=== PATIENT | male | born 2005 | race African-American/Black ===

== ENCOUNTER 2025-06-24 10:19 | Emergency (ER) | payer OTHER, SELFPAY ==
[2025-06-24 10:19] VITALS: BP 122/59; PULSE 78; RESP 16; TEMP 36.6; O2SAT 100; BMI 20.9
--- NOTE | 2025-06-24 10:23 | RAD_ITS ---
PROCEDURE: WRIST MIN 3 VIEWS 06/24/2025 REASON FOR EXAM: PAIN TECHNIQUE: Procedure Code: RADWR Modality: DX Procedure: WRIST MIN 3 VIEWS Laterality: Left COMPARISON: None FINDINGS: Bones: No visible fracture. No suspicious bone lesion. Joints: Normal alignment. Soft tissues: Soft tissues are unremarkable. RAD/Wrist min 3 Views IMPRESSION: NO ACUTE FRACTURE OR DISLOCATION. If acute hand or wrist trauma is suspected an d initial radiographs are negative or equivocal repeat radiographs in 10-14 days MRI without IV contrast or CT without IV contr ast is usually appropriate as the next imaging study. (ACR Appropriateness Criteria: Acute Hand and Wrist Trauma 2018) Reading Location: [facility]
--- NOTE | 2025-06-24 10:24 | EDS_ITS ---
HPI History of Present Illness Chief Complaint: Upper Extremity Injury Narrative Narrative: Pt is a 19-year-old male who is presenting to the ER today with chief complaint of left wrist pain. Patient was playing in a flag football game yesterday indoors. Patient lost his balance, falling forward with a FOOSH injury to left hand. Patient [id number]. 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 Patient did not hit his head. He has no headache or neck pain. He has no other injury or acute complaint besides left wrist. No left shoulder or left elbow pain. No pain to the left hand. Patient is at bedside. Patient did not take anything for pain this morning. Patient has no obvious deformity. REVIEW OF SYSTEMS: Unless otherwise stated in this report the patient's positive and negative responses for review of systems for constitutional, eyes, ENT, cardiovascular, respiratory, gastrointestinal, neurological, , musculoskeletal, and integument systems and related systems to the presenting problem are either stated in the history of present illness or were not pertinent or were negative for the symptoms and/or complaints related to the presenting medical problem. Nurse's notes and vital signs reviewed. The patient is not hypoxic. Vital signs reviewed and patient is not hypoxic. General: The patient appears well and in no apparent distress. Patient is resting comfortably on cart. Not toxic, lethargic, or listless. Skin: Warm, dry, no pallor noted. There is no rash noted. Head: Normocephalic, atraumatic Eye: Normal conjunctiva, no drainage, EOMI. PERRL. Ears, Nose, Mouth, and Throat: oral mucosa is moist. Nares patent. Cardiovascular: Regular Rate and Rhythm, no murmurs, gallops, or rubs Respiratory: Patient is in no distress, no accessory muscle use, lungs are clear to auscultation, no wheezing, rales or rhonchi Back: non-tender, GI: Soft, no tenderness Musculoskeletal: The patient has full range of motion of all extremities and joints with no difficulty except to left wrist. Patient has mild tenderness palpation to left anatomical snuffbox, mild tenderness with axial loading. Patient has mild to moderate pain with passive flexion extension abduction adduction of left wrist. Patient has no motor, no sensory deficits. Neurological: A&O x4, normal speech, no focal neurological deficits. Psychiatric: Cooperative [facility] Allergy/AdvReac Type Severity Reaction Status Date / Time No Known Allergies Allergy Verified 06/24/25 10:20 Social History Smoking Status: Never smoker EXAM Physical Exam Const Vital Signs: 06/24/25 10:19 Temperature 97.8 F Temperature Source Oral Pulse Rate 78 Respiratory Rate 16 Blood Pressure 122/59 H Blood Pressure Mean 80 Pulse Ox 100 Oxygen Delivery Method Room Air MDM MDM MDM Narrative Medical decision making narrative: Patient x-ray shows no acute fracture, dislocation, or acute abnormality. Patient has ice applied, patient was given Motrin. Patient was educated on using wrist splint for the next 2 to 5 days along with ice, exercises. Patient was given a copy of his wrist x-ray. Patient is off work until after the New Year's. Patient was educated on strict regimen of ice, anti-inflammatories. Patient was told to wear a brace at all times for the next 3 to 4 days, taking it off or ice and shower. Instructions were given at bedside. No question of discharge. Patient had a Velcro wrist splint placed to the left wrist. splint was assisted with Dr. Katz. The patient was neurovascular intact before and after the splint was placed. The affected bones/injured area had proper alignment in a splint. Education on splint care at home was given at bedside. Patient and family had no questions at disposition. Discharge Plan Triage Chief Complaint: Upper Extremity Injury ED Provider: Chetan Katz Dx/Rx/DC Orders Clinical Impression: Pain in left wrist, Left wrist sprain Instructions: ED Wrist Splint, ED Wrist Sprain, ED RICE Primary Care Provider: Anjum Yu Referrals: NOT,DEFINED [Non-Staff, None] Activity Restrictions/Additional Instructions: Use ice 20 minutes on, 20 minutes off for the next 5 to 7 days; do not use heat. You may alternate Tylenol and either Motrin, Advil, ibuprofen every 4 hours as needed for pain/fever. Take anti-inflammatories with food or drink to help buffer the medication. MAX dose of Tylenol is 3000 mg a day. MAX dose of Motrin, Advil, ibuprofen is 2400 mg a day. Print Language: Mexican Disposition Disposition: Home, Self Care Discharge Date/Time: 06/24/25 11:28
[2025-06-24 11:14] VITALS: BP 122/59; PULSE 78; RESP 16; TEMP 36.6; O2SAT 100
--- OUTSIDE RECORDS SUMMARY | 2025-06-24 11:24 | XMS RPT_ITS | CCD ---
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 [facility] Work Phone: Mean corpuscular hemoglobin (MCH) determinationon 01-10-2025 MCH (RBC) [Entitic mass] 31.8 pg 25.9-34.0 [facility] Work Phone: Mean corpuscular hemoglobin concentration (MCHC) determinationon 01-10-2025 MCHC (RBC) [Mass/Vol] 34.5 g/dL 29.9-35.2 [facility] Work Phone: Monocytes Auto (Bld) [#/Vol] on 01-10-2025 Monocytes (Bld) [#/Vol] 0.5 10*3/uL 0.3-0.8 [facility] Work Phone: Monocytes/100 WBC Auto (Bld) on 01-10-2025 Monocytes/100 WBC (Bld) 11.8 % 1.7-12.0 [facility] Work Phone: Mpvon 01-10-2025 Platelet mean volume (Bld) [Entitic vol] 8.8 fL 9.5-13.5 [facility] Work Phone: Neutrophils/100 WBC Auto (Bl d)on 01-10-2025 Neutrophils/100 WBC (Bld) 40.3 % 43.0-75.0 [facility] Work Phone: No Panel Informationon 01-10 Free Triiodothyronine 3.54 pg/mL 2.18-3.98 [facility] Work Phone: Platelets [#/volume] in Bloo don 01-10-2025 Platelets (Bld) [#/Vol] 240 10*3/uL 150-450 [facility] Work Phone: Potassium [Moles/volume] in Serum, Plasma or Bloodon 01-10-2025 Potassium (S/P/Bld) [Moles/Vol] 3.6 mmol/L 3.5-5.1 [facility] Work Phone: RBC counton 01-10-2025 RBC (Bld) [#/Vol] 4.93 10*6/uL 4.70-6.10 [facility] Work Phone: RDWon 01-10-2025 Erythrocyte distribution width (RBC) [Ratio] 11.6 % 11.0-15.0 [facility] Work Phone: Serum globulin measurementon 01-10-2025 Globulin (S) [Mass/Vol] 3.3 g/dL [facility] Work Phone: Serum or plasma creatinine m easurement (moles/volume)on 01-10-2025 Creatinine [Moles/Vol] 1.03 mg/dL 0.70-1.30 [facility] Work Phone: Sodium (Bld) [Moles/Vol]on 0 01-10-2025 Sodium [Moles/Vol] 143 mmol/L 136-145 [facility] Work Phone: T4 Thyroxineon 01-10-2025 T4 [Mass/Vol] 6.70 ug/dL Normal 4.50-12.10 [facility] [place] Comment on above: Performed By: #### C MP, FT3, T4, TSH #### [facility] , Thyroid Stimulating Hormoneo n 01-10-2025 Thyroid Stimulating Hormone 3.008 uIU/mL Normal 0.358-3.740 [facility] [place] Comment on above: Performed By: #### C MP, FT3, T4, TSH #### [facility] , Thyroid stimulating hormone (TSH) levelon 01-10-2025 Thyroid stimulating hormone (TSH) level 3.008 uIU/mL 0.358-3.740 [facility] Work Phone: Thyroxine (T4) measurementon 01-10-2025 T4 [Mass/Vol] 6.70 ug/dL 4.50-12.10 [facility] Work Phone: Total bilirubin measuremento n 01-10-2025 Bilirubin [Mass/Vol] 0.8 mg/dL 0.2-1.0 [facility] Work Phone: Total proteinon 01-10-2025 Protein [Mass/Vol] 8.2 g/dL 6.4-8.2 [facility] Work Phone: CBC W Auto Differential pane l (Bld)on 01-03-2025 Basophils (Bld) [#/Vol] 0.06 10*3/uL [facility] Basophils/100 WBC (Bld) 1.4 % 0.0 - 2.0 % [facility] Eosinophils (Bld) [#/Vol] 0.08 10*3/uL [facility] Eosinophils/100 WBC (Bld) 1.8 % 0.0 - 6.0 % [facility] Erythrocyte distribution width (RBC) [Ratio] 11.8 % 11.5 - 14.5 % [facility] Hematocrit (Bld) [Volume fraction] 43.2 % 41.0 - 52.0 % [facility] Hemoglobin (Bld) [Mass/Vol] 14.7 g/dL 13.5 - 17.5 g/dL [facility] Immature granulocytes (Bld) [#/Vol] 0.01 10*3/uL [facility] Immature granulocytes/100 WBC (Bld) 0.2 % 0.0 - 0.9 % [facility] Comment on above: Immature Granulocyte Count (IG) includes promyelocytes, myelocytes and metamyelocytes but does not include bands. Percent differential counts (%) should be interpreted in the context of the absolute cell counts (cells/UL). Lymphocytes (Bld) [#/Vol] 1.85 10*3/uL [facility] Lymphocytes/100 WBC (Bld) 42.4 % 13.0 - 44.0 % [facility] MCH (RBC) [Entitic mass] 31.1 pg 26.0 - 34.0 pg [facility] MCHC (RBC) [Mass/Vol] 34 g/dL 32.0 - 36.0 g/dL [facility] MCV (RBC) [Entitic vol] 91 fL 80 - 100 fL [facility] Monocytes (Bld) [#/Vol] 0.37 10*3/uL [facility] Monocytes/100 WBC (Bld) 8.5 % 2.0 - 10.0 % [facility] Neutrophils (Bld) [#/Vol] 1.99 10*3/uL [facility] Comment on above: Percent differential counts (%) should be interpreted in the context of the absolute cell counts (cells/uL). Neutrophils/100 WBC (Bld) 45.7 % 40.0 - 80.0 % [facility] Nucleated RBC/100 WBC (Bld) [Ratio] 0 % [facility] Platelets (Bld) [#/Vol] 228 10*3/uL [facility] RBC (Bld) [#/Vol] 4.73 10*6/uL [facility] WBC (Bld) [#/Vol] 4.4 10*3/uL [facility] Basophils (Bld) [#/Vol] 0.06 x10*3/uL Normal 0.00-0.10 [facility] Comment on above: Performed By: #### 5 7021-8 #### JIMI DORADO ([id number]) [facility] ([facility]) [address] [place] [address] 54003 Basophils/100 WBC (Bld) 1.4 % Normal 0.0-2.0 [facility] Comment on above: Performed By: #### 5 7021-8 #### JIMI DORADO ([id number]) [facility] ([facility]) [address] [place] [address] 55755 Eosinophils (Bld) [#/Vol] 0.08 x10*3/uL Normal 0.00-0.70 [facility] Comment on above: Performed By: #### 5 7021-8 #### JIMI DORADO ([id number]) [facility] ([facility]) [address] [place] [address] 17461 Eosinophils/100 WBC (Bld) 1.8 % Normal 0.0-6.0 [facility] Comment on above: Performed By: #### 5 7021-8 #### JIMI DORADO ([id number]) [facility] ([facility]) [address] [place] [address] 97872 Erythrocyte distribution width (RBC) [Ratio] 11.8 % Normal 11.5-14.5 [facility] Comment on above: Performed By: #### 5 7021-8 #### JIMI DORADO ([id number]) [facility] ([facility]) [address] [place] [address] 16604 Hematocrit (Bld) [Volume fraction] 43.2 % Normal 41.0-52.0 [facility] Comment on above: Performed By: #### 5 7021-8 #### JIMI DORADO ([id number]) [facility] ([facility]) [address] [place] [address] 86868 Hemoglobin (Bld) [Mass/Vol] 14.7 g/dL Normal 13.5-17.5 [facility] Comment on above: Performed By: #### 5 7021-8 #### JIMI DORADO ([id number]) [facility] ([facility]) [address] [place] [address] 10925 Immature granulocytes (Bld) [#/Vol] 0.01 x10*3/uL Normal 0.00-0.70 [facility] Comment on above: Performed By: #### 5 7021-8 #### JIMI DORADO ([id number]) [facility] ([facility]) [address] [place] [address] 75628 Immature granulocytes/100 WBC (Bld) 0.2 % Normal 0.0-0.9 [facility] Comment on above: Result Comment: Mechelle ture Granulocyte Count (IG) includes promyelocytes, myelocytes and metamyelocytes but does not include bands. Percent differential counts (%) should be interpreted in the context of the absolute cell counts (cells/UL). Performed By: #### 5 7021-8 #### JIMI DORADO ([id number]) [facility] ([facility]) [address] [place] [address] 29104 Lymphocytes (Bld) [#/Vol] 1.85 x10*3/uL Normal 1.20-4.80 [facility] Comment on above: Performed By: #### 5 7021-8 #### JIMI DORADO ([id number]) [facility] ([facility]) [address] [place] [address] 38790 Lymphocytes/100 WBC (Bld) 42.4 % Normal 13.0-44.0 [facility] Comment on above: Performed By: #### 5 7021-8 #### JIMI DORADO ([id number]) [facility] ([facility]) [address] [place] [address] 93793 MCH (RBC) [Entitic mass] 31.1 pg Normal 26.0-34.0 [facility] Comment on above: Performed By: #### 5 7021-8 #### JIMI DORADO ([id number]) [facility] ([facility]) [address] [place] [address] 43101 MCHC (RBC) [Mass/Vol] 34.0 g/dL Normal 32.0-36.0 [facility] Comment on above: Performed By: #### 5 7021-8 #### JIMI DORADO ([id number]) [facility] ([facility]) [address] [place] [address] 71457 MCV (RBC) [Entitic vol] 91 fL Normal 80-100 [facility] Comment on above: Performed By: #### 5 7021-8 #### JIMI DORADO ([id number]) [facility] ([facility]) [address] [place] [address] 53062 Monocytes (Bld) [#/Vol] 0.37 x10*3/uL Normal 0.10-1.00 [facility] Comment on above: Performed By: #### 5 7021-8 #### JIMI DORADO ([id number]) [facility] ([facility]) [address] [place] [address] 94432 Monocytes/100 WBC (Bld) 8.5 % Normal 2.0-10.0 [facility] Comment on above: Performed By: #### 5 7021-8 #### JIMI DORADO ([id number]) [facility] ([facility]) [address] [place] [address] 60039 Neutrophils (Bld) [#/Vol] 1.99 x10*3/uL Normal 1.20-7.70 [facility] Comment on above: Result Comment: Perc ent differential counts (%) should be interpreted in the context of the absolute cell counts (cells/uL). Performed By: #### 5 7021-8 #### JIMI DORADO ([id number]) [facility] ([facility]) [address] [place] [address] 76720 Neutrophils/100 WBC (Bld) 45.7 % Normal 40.0-80.0 [facility] Comment on above: Performed By: #### 5 7021-8 #### JIMI DORADO ([id number]) [facility] ([facility]) [address] [place] [address] 31636 Nucleated RBC/100 WBC (Bld) [Ratio] 0.0 /100 WBCs Normal 0.0-0.0 [facility] Comment on above: Performed By: #### 5 7021-8 #### JIMI DORADO ([id number]) [facility] ([facility]) [address] [place] [address] 56018 Platelets (Bld) [#/Vol] 228 x10*3/uL Normal 150-450 [facility] Comment on above: Performed By: #### 5 7021-8 #### JIMI DORADO ([id number]) [facility] ([facility]) [address] [place] [address] 42251 RBC (Bld) [#/Vol] 4.73 x10*6/uL Normal 4.50-5.90 [facility] Comment on above: Performed By: #### 5 7021-8 #### JIMI DORADO ([id number]) [facility] ([facility]) [address] [place] [address] WBC (Bld) [#/Vol] 4.4 x10*3/uL Normal 4.4-11.3 [facility] Comment on above: Performed By: #### 5 7021-8 #### KRAUSE DAVIDSUSAN ([id number]) [facility] ([facility]) [address] [place] [address] CT CERVICAL SPINE WO IV CONT RASTon 01-03-2025 CT CERVICAL SPINE WO IV CONTRAST Interpreted By: Kyrie Marinelli, STUDY: CT CERVICAL SPINE WO IV CONTRAST; 01/03/2025 8:05 am INDICATION: Signs/Symptoms:neck trauma. COMPARISON: None. ACCESSION NUMBER(S): [id number] ORDERING CLINICIAN: STACY BILLINGSLEY TECHNIQUE: Unenhanced axial images were obtained through the cervical spine. The axial data was utilized to reconstruct images in sagittal and coronal planes. FINDINGS: No acute fracture is identified. No subluxation is seen. Facet joints demonstrate a normal alignment. Prevertebral soft tissues are within normal limits. No lytic or blastic lesion is noted. IMPRESSION: No evidence of an acute fracture or subluxation. MACRO: None. Signed by: Kyrie Marinelli 01/03/2025 8:22 AM Dictation workstation: [id number] [facility] CT Cervical spine WO contras ton 01-03-2025 No evidence of an acute fracture or subluxation. MACRO: None. Signed by: Kyrie Marinelli 01/03/2025 8:22 AM Dictation workstation: [id number] [facility]ODAL Interpreted By: Kyrie Marinelli, STUDY: CT CERVICAL SPINE WO IV CONTRAST; 01/03/2025 8:05 am INDICATION: Signs/Symptoms:neck trauma. COMPARISON: None. ACCESSION NUMBER(S): [id number] ORDERING CLINICIAN: STACY BILLINGSLEY TECHNIQUE: Unenhanced axial images were obtained through the cervical spine. The axial data was utilized to reconstruct images in sagittal and coronal planes. FINDINGS: No acute fracture is identified. No subluxation is seen. Facet joints demonstrate a normal alignment. Prevertebral soft tissues are within normal limits. No lytic or blastic lesion is noted. [facility] Kyrie Marinelli MD - 01/03/2025 Interpreted By: Kyrie Marinelli, STUDY: CT CERVICAL SPINE WO IV CONTRAST; 01/03/2025 8:05 am INDICATION: Signs/Symptoms:neck trauma. COMPARISON: None. ACCESSION NUMBER(S): [id number] ORDERING CLINICIAN: STACY BILLINGSLEY TECHNIQUE: Unenhanced axial images were obtained through the cervical spine. The axial data was utilized to reconstruct images in sagittal and coronal planes. FINDINGS: No acute fracture is identified. No subluxation is seen. Facet joints demonstrate a normal alignment. Prevertebral soft tissues are within normal limits. No lytic or blastic lesion is noted. IMPRESSION: No evidence of an acute fracture or subluxation. MACRO: None. Signed by: Kyrie Marinelli 01/03/2025 8:22 AM Dictation workstation: [id number] [facility] Work Phone: [facility] Work Phone: CT HEAD WO IV CONTRASTon CT HEAD WO IV CONTRAST Interpreted By: Kyrie Marinelli, STUDY: CT HEAD WO IV CONTRAST; 01/03/2025 8:05 am INDICATION: Signs/Symptoms:head trauma. COMPARISON: None. ACCESSION NUMBER(S): [id number] ORDERING CLINICIAN: STACY BILLINGSLEY TECHNIQUE: Unenhanced images were obtained through the brain. FINDINGS: The ventricles appear normal in size and position. There is no mass effect or midline shift. No acute intracranial hemorrhage is identified. No extra-axial fluid collections are seen. No intraparenchymal mass lesions are identified. Bone windows demonstrate no evidence of an acute calvarial fracture. IMPRESSION: No evidence of an acute intracranial process. MACRO: None. Signed by: Kyrie Marinelli 01/03/2025 8:21 AM Dictation workstation: [id number] [facility] CT Head WO contraston 2024 No evidence of an acute intracranial process. MACRO: None. Signed by: Kyrie Marinelli 01/03/2025 8:21 AM Dictation workstation: [id number] MMODAL Interpreted By: Kyrie Marinelli, STUDY: CT HEAD WO IV CONTRAST; 01/03/2025 8:05 am INDICATION: Signs/Symptoms:head trauma. COMPARISON: None. ACCESSION NUMBER(S): [id number] ORDERING CLINICIAN: STACY BILLINGSLEY TECHNIQUE: Unenhanced images were obtained through the brain. FINDINGS: The ventricles appear normal in size and position. There is no mass effect or midline shift. No acute intracranial hemorrhage is identified. No extra-axial fluid collections are seen. No intraparenchymal mass lesions are identified. Bone windows demonstrate no evidence of an acute calvarial fracture. [facility] - 01/03/2025 Interpreted By: Kyrie Marinelli, STUDY: CT HEAD WO IV CONTRAST; 01/03/2025 8:05 am INDICATION: Signs/Symptoms:head trauma. COMPARISON: None. ACCESSION NUMBER(S): [id number] ORDERING CLINICIAN: STACY BILLINGSLEY TECHNIQUE: Unenhanced images were obtained through the brain. FINDINGS: The ventricles appear normal in size and position. There is no mass effect or midline shift. No acute intracranial hemorrhage is identified. No extra-axial fluid collections are seen. No intraparenchymal mass lesions are identified. Bone windows demonstrate no evidence of an acute calvarial fracture. IMPRESSION: No evidence of an acute intracranial process. MACRO: None. Signed by: Kyrie Marinelli 01/03/2025 8:21 AM Dictation workstation: [id number] [facility] Work Phone: [facility] Work Phone: Comprehensive metabolic 2000 panelon 01-03-2025 Albumin BCP dye [Mass/Vol] 4.7 g/dL 3.4 - 5.0 g/dL [facility] ALP [Catalytic activity/Vol] 55 U/L 33 - 120 U/L [facility] ALT With P-5'-P [Catalytic activity/Vol] 10 U/L 10 - 52 U/L [facility] Comment on above: Patients treated wit h Sulfasalazine may generate falsely decreased results for ALT. Anion gap [Moles/Vol] 9 mmol/L Low 10 - 20 mmol/L [facility] AST With P-5'-P [Catalytic activity/Vol] 13 U/L 9 - 39 U/L [facility] Bilirubin [Mass/Vol] 0.5 mg/dL 0.0 - 1 .2 mg/dL [facility] Calcium [Mass/Vol] 9.2 mg/dL 8.6 - 10. 3 mg/dL [facility] Chloride [Moles/Vol] 105 mmol/L 98 - 10 7 mmol/L [facility] CO2 [Moles/Vol] 28 mmol/L 21 - 32 mmol/L [facility] Creatinine [Mass/Vol] 1.04 mg/dL 0.50 - 1.30 mg/dL [facility] eGFR - PINF [facility] Comment on above: Calculations of hoda mated GFR are performed using the 2020 CKD-EPI Study Refit equation without the race variable for the IDMS-Traceable creatinine methods. https://jasn.asnjournals.org/content/early/ASN.9059420 988 Glucose [Mass/Vol] 94 mg/dL 74 - 99 mg/dL [facility] Interpretation and review of laboratory results Abnormal [facility] Potassium [Moles/Vol] 4 mmol/L 3.5 - 5.3 mmol/L [facility] Protein [Mass/Vol] 6.9 g/dL 6.4 - 8.2 g/dL [facility] Sodium [Moles/Vol] 138 mmol/L 136 - 145 mmol/L [facility] Urea nitrogen [Mass/Vol] 11 mg/dL 6 - 23 mg/dL [facility] Albumin BCP dye [Mass/Vol] 4.7 g/dL Normal 3.4-5.0 [facility] Comment on above: Performed By: #### 2 4323-8 #### JIMI DORADO ([id number]) [facility] ([facility]) [address] [place] [address] 08679 ALP [Catalytic activity/Vol] 55 U/L Normal 33-120 [facility] Comment on above: Performed By: #### 2 4323-8 #### JIMI DORADO ([id number]) [facility] ([facility]) [address] [place] [address] 83149 ALT With P-5'-P [Catalytic activity/Vol] 10 U/L Normal 10-52 [facility] Comment on above: Result Comment: Isabella ents treated with Sulfasalazine may generate falsely decreased results for ALT. Performed By: #### 2 4323-8 #### JIMI DORADO ([id number]) [facility] ([facility]) [address] [place] [address] Anion gap [Moles/Vol] 9 mmol/L Low 10-20 [facility] Comment on above: Performed By: #### 2 432-8 #### JIMI DORADO ([id number]) [facility] ([facility]) [address] [place] [address] 67074 AST With P-5'-P [Catalytic activity/Vol] 13 U/L Normal 9-39 [facility] Comment on above: Performed By: #### 2 432-8 #### JIMI DORADO ([id number]) [facility] ([facility]) [address] [place] [address] Bilirubin [Mass/Vol] 0.5 mg/dL Normal 0.0-1.2 [facility] Comment on above: Performed By: #### 2 432-8 #### JIMI DORADO ([id number]) [facility] ([facility]) [address] [place] [address] Calcium [Mass/Vol] 9.2 mg/dL Normal 8.6-10.3 [facility] Comment on above: Performed By: #### 2 4323-8 #### JIMI DORADO ([id number]) [facility] ([facility]) [address] [place] [address] Chloride [Moles/Vol] 105 mmol/L Normal 98-107 [facility] Comment on above: Performed By: #### 2 4323-8 #### JIMI DORADO ([id number]) [facility] ([facility]) [address] [place] [address] CO2 [Moles/Vol] 28 mmol/L Normal 21-32 [facility] Comment on above: Performed By: #### 2 4323-8 #### JIMI DORADO ([id number]) [facility] ([facility]) [address] [place] [address] 76458 Creatinine [Mass/Vol] 1.04 mg/dL Normal 0.50-1.30 [facility] Comment on above: Performed By: #### 2 4323-8 #### JIMI DORADO ([id number]) [facility] ([facility]) [address] [place] [address] 73765 GFR/1.73 sq M.predicted MDRD (S/P/Bld) [Vol rate/Area] mL/min/{1.73_m2} Normal >60 [facility] Comment on above: Result Comment: Calc ulations of estimated GFR are performed using the 2020 CKD-EPI Study Refit equation without the race variable for the IDMS-Traceable creatinine methods. https://jasn.asnjournals.org/content/early//ASN.3538864 988 Performed By: #### 2 4323-8 #### JIMI DORADO ([id number]) [facility] ([facility]) [address] [place] [address] 57767 Glucose [Mass/Vol] 94 mg/dL Normal 74-99 [facility] Comment on above: Performed By: #### 2 4323-8 #### JIMI DORADO ([id number]) [facility] ([facility]) [address] [place] [address] 18970 Potassium [Moles/Vol] 4.0 mmol/L Normal 3.5-5.3 [facility] Comment on above: Performed By: #### 2 4323-8 #### JIMI DORADO ([id number]) [facility] ([facility]) [address] [place] [address] 71731 Protein [Mass/Vol] 6.9 g/dL Normal 6.4-8.2 [facility] Comment on above: Performed By: #### 2 4323-8 #### JIMI DORADO ([id number]) [facility] ([facility]) [address] [place] [address] Sodium [Moles/Vol] 138 mmol/L Normal 136-145 [facility] Comment on above: Performed By: #### 2 4323-8 #### JIMI DORADO ([id number]) [facility] ([facility]) [facility] [place] [address] Urea nitrogen [Mass/Vol] 11 mg/dL Normal 6-23 [facility] Comment on above: Performed By: #### 2 4323-8 #### JIMI DORADO ([id number]) [facility] ([facility]) [address] [place] [address] ECG 12-LEADon 01-03-2025 ECG 12-LEAD Ventricular Rate 69 Atrial Rate 69 P-R Interval 140 QRS Duration 92 Q-T Interval 364 QTC Calculation(Bazett) 390 P Duffield 38 R Duffield 76 T Duffield 50 QRS Count 11 Q Onset 220 P Onset 150 P Offset 190 T Offset 402 QTC Fredericia 381 Diagnosis Normal sinus rhythm Normal ECG No previous ECGs available See ED provider note for full interpretation and clinical correlation Confirmed by Katheryn Tesfaye ([id number]) on 01/07/2025 11:43:37 AM Normal [facility] (formerly [facility]) Magnesiumon 01-03-2025 Magnesium [Mass/Vol] 1.98 mg/dL 1.60 - 2.40 mg/dL [facility] Magnesium [Mass/Vol] 1.98 mg/dL Normal 1.60-2.40 [facility] Comment on above: Performed By: #### 1 [id number] #### JIMI DORADO ([id number]) [facility] ([facility]) [address] [place], [place] [id number] Magnesium [Mass/Vol]on 01-03 Interpretation and review of laboratory results Normal [facility] No Panel Informationon 01-03 [facility] Radiology Study observation (narrative) [facility] Work Phone: Tropinin I.cardiac panel Hig h sensitivity methodon 01-03-2025 Interpretation and review of laboratory results Normal [facility] Less than 99th percentile of normal range cutoff- Female and children under 18 years old <14 ng/L; Male <21 ng/L: Negative Repeat testing should be performed if clinically indicated. Female and children under 18 years old 14-50 ng/L; Male 21-50 ng/L: Consistent with possible cardiac damage and possible increased clinical risk. Serial measurements may help to assess extent of myocardial damage. >50 ng/L: Consistent with cardiac damage, increased clinical risk and myocardial infarction. Serial measurements may help assess extent of myocardial damage. NOTE: Children less than 1 year old may have higher baseline troponin levels and results should be interpreted in conjunction with the overall clinical context. NOTE: Troponin I testing is performed using a different testing methodology at [facility] than at other [facility]. Direct result comparisons should only be made within the same method. [facility] Interpretation and review of laboratory results Normal [facility] Less than 99th percentile of normal range cutoff- Female and children under 18 years old <14 ng/L; Male <21 ng/L: Negative Repeat testing should be performed if clinically indicated. Female and children under 18 years old 14-50 ng/L; Male 21-50 ng/L: Consistent with possible cardiac damage and possible increased clinical risk. Serial measurements may help to assess extent of myocardial damage. >50 ng/L: Consistent with cardiac damage, increased clinical risk and myocardial infarction. Serial measurements may help assess extent of myocardial damage. NOTE: Children less than 1 year old may have higher baseline troponin levels and results should be interpreted in conjunction with the overall clinical context. NOTE: Troponin I testing is performed using a different testing methodology at [facility] than at other [facility]. Direct result comparisons should only be made within the same method. [facility] Troponin I, High Sensitivity , Initialon 01-03-2025 Tropinin I.cardiac panel High sensitivity method 3 ng/L 0 - 20 ng/L [facility] Troponin I.cardiac panelon 0 01-03-2025 Tropinin I.cardiac panel High sensitivity method 3 ng/L Normal 0-20 [facility] Comment on above: Order Comment: Less than 99th percentile of normal range cutoff- Female and children under 18 years old <14 ng/L; Male <21 ng/L: Negative Repeat testing should be performed if clinically indicated. Female and children under 18 years old 14-50 ng/L; Male 21-50 ng/L: Consistent with possible cardiac damage and possible increased clinical risk. Serial measurements may help to assess extent of myocardial damage. >50 ng/L: Consistent with cardiac damage, increased clinical risk and myocardial infarction. Serial measurements may help assess extent of myocardial damage. NOTE: Children less than 1 year old may have higher baseline troponin levels and results should be interpreted in conjunction with the overall clinical context. NOTE: Troponin I testing is performed using a different testing methodology at [facility] than at other [facility]. Direct result comparisons should only be made within the same method. Performed By: #### [id number] #### [address] ([id number]) [facility] ([facility]) [address] [place], [place] [phone] Tropinin I.cardiac panel High sensitivity method 3 ng/L Normal 0-20 [facility] Comment on above: Order Comment: Less than 99th percentile of normal range cutoff- Female and children under 18 years old <14 ng/L; Male <21 ng/L: Negative Repeat testing should be performed if clinically indicated. Female and children under 18 years old 14-50 ng/L; Male 21-50 ng/L: Consistent with possible cardiac damage and possible increased clinical risk. Serial measurements may help to assess extent of myocardial damage. >50 ng/L: Consistent with cardiac damage, increased clinical risk and myocardial infarction. Serial measurements may help assess extent of myocardial damage. NOTE: Children less than 1 year old may have higher baseline troponin levels and results should be interpreted in conjunction with the overall clinical context. NOTE: Troponin I testing is performed using a different testing methodology at [facility] than at other [facility]. Direct result comparisons should only be made within the same method. Performed By: #### [id number] #### [address] ([id number]) [facility] ([facility]) [address] [place] [id number] Troponin, High Sensitivity, 1 Houron 01-03-2025 Tropinin I.cardiac panel High sensitivity method 3 ng/L 0 - 20 ng/L [facility] XR CHEST 1 VIEWon 01-03-2025 XR CHEST 1 VIEW Interpreted By: Kyrie Marinelli, STUDY: XR CHEST 1 VIEW; 01/03/2025 7:39 am INDICATION: Signs/Symptoms:Chest Pain. COMPARISON: None. ACCESSION NUMBER(S): [id number] ORDERING CLINICIAN: STACY BILLINGSLEY FINDINGS: CHEST/LUNGS: The cardiac and mediastinal silhouettes are within normal limits for the technique. No focal areas of consolidation are noted. No effusion or pneumothorax is seen. UPPER ABDOMEN: No remarkable upper abdominal findings. OSSEOUS STRUCTURES: No acute changes. IMPRESSION: No radiographic evidence of an acute cardiopulmonary process. MACRO: None. Signed by: Kyrie Marinelli 01/03/2025 8:19 AM Dictation workstation: [id number] [facility] XR Chest Single viewon 01-03 No radiographic evidence of an acute cardiopulmonary process. MACRO: None. Signed by: Kyrie Marinelli 01/03/2025 8:19 AM Dictation workstation: [id number] [facility] Interpreted By: Kyrie Marinelli, STUDY: XR CHEST 1 VIEW; 01/03/2025 7:39 am INDICATION: Signs/Symptoms:Chest Pain. COMPARISON: None. ACCESSION NUMBER(S): [id number] ORDERING CLINICIAN: STACY BILLINGSLEY FINDINGS: CHEST/LUNGS: The cardiac and mediastinal silhouettes are within normal limits for the technique. No focal areas of consolidation are noted. No effusion or pneumothorax is seen. UPPER ABDOMEN: No remarkable upper abdominal findings. OSSEOUS STRUCTURES: No acute changes. MMODAL Kyrie Marinelli MD - 01/03/2025 Interpreted By: Kyrie Marinelli, STUDY: XR CHEST 1 VIEW; 01/03/2025 7:39 am INDICATION: Signs/Symptoms:Chest Pain. COMPARISON: None. ACCESSION NUMBER(S): [id number] ORDERING CLINICIAN: STACY BILLINGSLEY FINDINGS: CHEST/LUNGS: The cardiac and mediastinal silhouettes are within normal limits for the technique. No focal areas of consolidation are noted. No effusion or pneumothorax is seen. UPPER ABDOMEN: No remarkable upper abdominal findings. OSSEOUS STRUCTURES: No acute changes. IMPRESSION: No radiographic evidence of an acute cardiopulmonary process. MACRO: None. Signed by: Kyrie Marinelli 01/03/2025 8:19 AM Dictation workstation: [id number] [facility] Work Phone: Radiology Study observation (narrative) [facility] Work Phone: XR Chest Single viewOrdered By: Kyrie Marinelli on 01-03-2025 [facility] Work Phone: ED Provider Noteon ED Provider Note EMERGENCY DEPARTMENT ENCOUNTER Pt Name: Abhi Matos Birthdate 2005 Date of evaluation: 01/01/2025 CHIEF COMPLAINT Chief Complaint Patient presents with Neck Pain No injury HISTORY OF PRESENT ILLNESS HPI Abhi Matos is a 19 y.o. male who presents to the emergency department with neck pain, he woke up with symptoms 2 days ago. He has decreased range of motion of the neck. No fever no numbness no weakness of the extremities, no bowel incontinence or bladder incontinence. No injury. He has tried Biofreeze. Qlkx-ani-xmbuuoh medication. He would like a work note. REVIEW OF SYSTEMS Review of Systems No past medical history on file. CURRENT MEDICATIONS Previous Medications CYCLOBENZAPRINE (FLEXERIL) 10 MG TABLET Take 1 tablet (10 mg) by mouth 3 times daily as needed for muscle spasms for up to 4 days. DEXAMETHASONE (DECADRON) 4 MG TABLET Take 1 tablet (4 mg) by mouth daily (with breakfast) for 7 days. ALLERGIES Patient has no known allergies. SOCIAL HISTORY Social History Socioeconomic History Marital status: Single Spouse name: Not on file Number of children: Not on file Years of education: Not on file Highest education level: Not on file Occupational History Not on file Tobacco Use Smoking status: Never Smokeless tobacco: Never Substance and Sexual Activity Alcohol use: Not on file Drug use: Not on file Sexual activity: Not on file Other Topics Concern Not on file Social History Narrative Not on file Social Drivers of Health Financial Resource Strain: Not on file Food Insecurity: No Food Insecurity (11/20/2023) Received from [facility] Hunger Screening Within the past 12 months we worried whether our food would run out before we got money to buy more.: Never True Within the past 12 months the food we bought just didn't last and we didn't have money to get more.: Never True Transportation Needs: Not on file Physical Activity: Not on file Stress: Not on file Social Connections: Not on file Intimate Partner Violence: Not on file Housing Stability: Not on file PHYSICAL EXAM Vitals: 01/01/25 2349 BP: 129/61 BP Location: Right arm Patient Position: Sitting Pulse: 70 Resp: 16 Temp: 36.8 ?C (98.3 ?F) SpO2: 100% Physical Exam Vitals and nursing note reviewed. Constitutional: Appearance: He is not toxic-appearing. Musculoskeletal: Cervical back: Tenderness present. Muscular tenderness present. Decreased range of motion. Skin: General: Skin is warm. Coloration: Skin is not jaundiced. Neurological: Mental Status: He is alert. Sensory: Sensation is intact. Motor: Motor function is intact. Gait: Gait is intact. Deep Tendon Reflexes: Reflexes are normal and symmetric. Psychiatric: Behavior: Behavior normal. Thought Content: Thought content normal. SCREENINGS Dewey Coma Scale Best Eye Response: Spontaneous Best Verbal Response: Oriented Best Motor Response: Follows commands Dewey Coma Scale Score: 15 Medical decision making DIAGNOSTIC RESULTS Procedures/EKG: Physician EKG interpretation can be found in [facility]any if done Radiologist results reviewed: No orders to display LABS: Labs Reviewed - No data to display RADIOLOGY : Medications ordered: Medications traMADol (Ultram) tablet 50 mg (50 mg Oral Given 01/02/25 0030) Diagnoses as of 01/02/25 0032 Neck pain * No order type specified * Our workup consisted of ordering/reviewing: No orders of the defined types were placed in this encounter. MDM: 19 y.o. presented with neck pain. The differential diagnosis considered: Muscle spasm, myofascial pain. Diagnostic tests considered but not performed: C-spine x-ray. Clinically no fracture no subluxation. Consideration for escalation of care with: diagnostics esr, clinically not septic hence not ordered unlikely, epidural abscess.. Prescription medications considered but not prescribed: oxycodone po. Will trial alternative to opiates. . REVAL: CRITICAL CARE TIME PROCEDURES: Procedures FINAL IMPRESSION 1. Neck pain DISPOSITION/PLAN DISPOSITION Discharge 01/02/2025 12:25:31 AM PATIENT REFERRED TO: Your primary care doctor In 5 days I prescribed: New Prescriptions TIZANIDINE (ZANAFLEX) 2 MG TABLET Take 1 tablet (2 mg) by mouth Daily as needed for muscle spasms. (Comment: this report has been produced using speech recognition software and may contain errors related to that system including errors in grammar, punctuation, and spelling, as well as words and phrases) Stephania Gore MD (electronically signed) Stephania Gore MD 01/02/25 0032 Normal [facility] XR hand RT min 3V*on 025 XR hand RT min 3V* [facility] [address] [place] [id number] XRay Report Signed Patient: Abhi Matos MR#: [id number] : 2005 Acct:[id number] Age/Sex: 19 / M ADM Date: 12/14/24 Loc: ER Room: Type: [facility] ER Attending Dr: Copies to: GAIL Kurtz Do Ordering Provider: Jenifer Stock Do Date of Service: 12/14/24 XR/XR hand RT min 3V*: Extremity Injury, Upper RIGHT HAND - 3 views REASON FOR EXAM: Injury to right hand yesterday now with pain and swelling fifth metacarpal COMPARISON: None FINDINGS: Soft tissue swelling is noted. No acute bony process is seen. Joint spaces appear maintained. No bony erosions. XR/XR hand RT min 3V* IMPRESSION: SOFT TISSUE SWELLING WITHOUT ACUTE BONY PROCESS. Impression dictated by: Eugenio Gilmore Jr., D.O. 12/14/2024 9:55 AM Dictation Location: [place] [address] Transcribed By: [facility] 12/14/24 0955 Dictated By: Eugenio Gilmore Jr, DO 12/14/24 0954 Signed By: 12/14/24 0955 [facility] ([facility] ED Provider Noteon ED Provider Note EMERGENCY DEPARTMENT ENCOUNTER Pt Name: Abhi Matos Birthdate 2005 Date of evaluation: 03/28/2024 CHIEF COMPLAINT Chief Complaint Patient presents with Headache Pt reports headache since last Thursday. Came to ED on and received a ct scan/headache cocktail and left ED with no relief of headache. Pt reports he took motrin last night for CARPENTER without relief but has not kept up on pain medications. Pt denies HX of migraines, took covid test at home that was negative. HISTORY OF PRESENT ILLNESS HPI Abhi Matos is a 18 y.o. male who presents to the emergency department with headache. Was seen before had a CAT scan done. Home COVID test was negative. He has been trying ibuprofen without significant relief. Normal vision no double vision no focal weakness no numbness no loss of consciousness. Headache started approximately 7 days ago. Pain in the neck. Some photophobia. Denies nausea, denies vomiting to me. No fever. Headache started gradually. REVIEW OF SYSTEMS Review of Systems There is no problem list on file for this patient. CURRENT MEDICATIONS Previous Medications CYCLOBENZAPRINE (FLEXERIL) 10 MG TABLET Take 1 tablet (10 mg) by mouth 3 times daily as needed for muscle spasms for up to 4 days. IBUPROFEN 800 MG TABLET Take 1 tablet (800 mg) by mouth every 8 hours as needed for mild pain (1-3) for up to 7 days. ALLERGIES Patient has no known allergies. SOCIAL HISTORY Social History Tobacco Use Smoking status: Never Smokeless tobacco: Never Social Determinants of Health Tobacco Use: Low Risk (03/28/2024) Patient History Smoking Tobacco Use: Never Smokeless Tobacco Use: Never Passive Exposure: Not on file Alcohol Use: Not At Risk (03/28/2024) AUDIT-C Frequency of Alcohol Consumption: Never Average Number of Drinks: Patient does not drink Frequency of Binge Drinking: Never Financial Resource Strain: Not on file Food Insecurity: No Food Insecurity (11/20/2023) Received from [facility] Hunger Screening Within the past 12 months we worried whether our food would run out before we got money to buy more.: Never True Within the past 12 months the food we bought just didn't last and we didn't have money to get more.: Never True Transportation Needs: Not on file Physical Activity: Not on file Stress: Not on file Social Connections: Not on file Intimate Partner Violence: Not on file Depression: Not on file Housing Stability: Not on file Utilities: Not on file Health Literacy: Not on file PHYSICAL EXAM Vitals: 03/28/24 1833 03/28/24 1841 BP: 132/64 Pulse: 82 Resp: 16 Temp: 36.7 ?C (98 ?F) TempSrc: Oral SpO2: 100% 100% Weight: 56.7 kg (125 lb) Height: 1.702 m (5' 7) Physical Exam Vitals and nursing note reviewed. Constitutional: Appearance: He is underweight. HENT: Head: Atraumatic. Eyes: Extraocular Movements: Extraocular movements intact. Conjunctiva/sclera: Conjunctivae normal. Pupils: Pupils are equal, round, and reactive to light. Funduscopic exam: Right eye: No papilledema. Left eye: No papilledema. Neck: Vascular: No carotid bruit. Pulmonary: Effort: Pulmonary effort is normal. Breath sounds: Normal breath sounds. Musculoskeletal: Cervical back: Normal range of motion. Right lower leg: No swelling or tenderness. Left lower leg: No swelling or tenderness. Skin: General: Skin is warm and dry. Capillary Refill: Capillary refill takes less than 2 seconds. Coloration: Skin is not jaundiced. Neurological: Mental Status: He is alert and oriented to person, place, and time. Cranial Nerves: Cranial nerves 2-12 are intact. Sensory: Sensation is intact. Motor: Motor function is intact. Coordination: Coordination is intact. Gait: Gait is intact. Comments: Nih ss=0 Psychiatric: Mood and Affect: Mood normal. Behavior: Behavior normal. Thought Content: Thought content normal. SCREENINGS Dewey Coma Scale Best Eye Response: Spontaneous Best Verbal Response: Oriented Best Motor Response: Follows commands Luther Coma Scale Score: 15 Medical decision making DIAGNOSTIC RESULTS Procedures/EKG: Physician EKG interpretation can be found in [facility] if done RADIOLOGY : Radiologist results reviewed: No orders to display LABS: Labs Reviewed - No data to display Medications ordered: Medications morphine injection 4 mg ED Course as of 03/28/241854Mar 28, [address] head wo IV contrast (03/24/24 1525) Prior medical records were reviewed: ct head nad [NM] ED Course User Index [NM] Stephania Gore MD Diagnoses as of 03/28/24 185 Headache disorder * No order type specified * Our workup consisted of ordering/reviewing: Orders Placed This Encounter Procedures [facility] Neurology and Sleep [facility] MEDICAL DECISION MAKING: I considered, but did not perform, additional testing such as C (more content not included)... Normal [facility] CT HEAD WO IV CONTRASTon CT HEAD WO IV CONTRAST [facility] 2005 [id number] Exam Date/Time: 03/24/2024 15:18 Procedure: CT HEAD WO IV CONTRAST Ordering Provider: ORELLANA GREGORY Reason For Exam: HEADACHE EXAMINATION: CT HEAD WO IV CONTRAST HISTORY: HEADACHE TECHNIQUE: CT head without contrast. Dose reduction was employed with automated exposure control. COMPARISON: None available RESULT: Acute change: No evidence of an acute intracranial process. Hemorrhage: No evidence of acute intracranial hemorrhage. Mass Lesion / Mass Effect: No evidence of an intracranial mass, extra-axial fluid collection, or significant localized mass effect. Chronic change: None apparent. Parenchyma: There is no significant volume loss. The brain parenchyma is otherwise within normal limits for age. Ventricles: Normal caliber and morphology. Other: The calvarium, skull base, imaged paranasal sinuses, mastoids, orbits and extracranial soft tissues are unremarkable. IMPRESSION: No CT evidence of an acute intracranial abnormality. Report Dictated on Electronically Signed By: Quentin Wilkerson MD Electronically Signed Date/Time: 03/24/2024 3:25 PM EDT Headache x3 days, no known injury. Normal [facility] CT Head WO contraston [address] evidence of an acute intracranial abnormality. Report Dictated on Electronically Signed By: Quentin Wilkerson MD Electronically Signed Date/Time: 03/24/2024 3:25 PM EDT [facility] Patient Name: ABHI MATOS : 2005 [id number] Exam Date/Time: 03/24/2024 15:18 Procedure: CT HEAD WO IV CONTRAST Ordering Provider: ORELLANA GREGORY Reason For Exam: HEADACHE EXAMINATION: CT HEAD WO IV CONTRAST HISTORY: HEADACHE TECHNIQUE: CT head without contrast. Dose reduction was employed with automated exposure control. COMPARISON: None available RESULT: Acute change: No evidence of an acute intracranial process. Hemorrhage: No evidence of acute intracranial hemorrhage. Mass Lesion / Mass Effect: No evidence of an intracranial mass, extra-axial fluid collection, or significant localized mass effect. Chronic change: None apparent. Parenchyma: There is no significant volume loss. The brain parenchyma is otherwise within normal limits for age. Ventricles: Normal caliber and morphology. Other: The calvarium, skull base, imaged paranasal sinuses, mastoids, orbits and extracranial soft tissues are unremarkable. [facility] Quentin Wilkerson MD - 03/24/2024 Patient Name: ABHI MATOS : 2005 [id number] Exam Date/Time: 03/24/2024 15:18 Procedure: CT HEAD WO IV CONTRAST Ordering Provider: ORELLANA GREGORY Reason For Exam: HEADACHE EXAMINATION: CT HEAD WO IV CONTRAST HISTORY: HEADACHE TECHNIQUE: CT head without contrast. Dose reduction was employed with automated exposure control. COMPARISON: None available RESULT: Acute change: No evidence of an acute intracranial process. Hemorrhage: No evidence of acute intracranial hemorrhage. Mass Lesion / Mass Effect: No evidence of an intracranial mass, extra-axial fluid collection, or significant localized mass effect. Chronic change: None apparent. Parenchyma: There is no significant volume loss. The brain parenchyma is otherwise within normal limits for age. Ventricles: Normal caliber and morphology. Other: The calvarium, skull base, imaged paranasal sinuses, mastoids, orbits and extracranial soft tissues are unremarkable. IMPRESSION: No CT evidence of an acute intracranial abnormality. Report Dictated on Electronically Signed By: Quentin Wilkerson MD Electronically Signed Date/Time: 03/24/2024 3:25 PM EDT [facility] Radiology Study observation (narrative) [facility] CT Head WO contrastOrdered B y: Quentin Wilkerson on 03-24-2024 [facility] Work Phone: ED Provider Noteon ED Provider Note [facility] ED EMERGENCY DEPARTMENT ENCOUNTER Pt Name: Abhi Matos Birthdate 2005 Date of evaluation: 03/24/2024 Provider: Jose G Orellana MD CHIEF COMPLAINT Chief Complaint Patient presents with Headache X3 days HISTORY OF PRESENT ILLNESS (Location/Symptom, Timing/Onset,Context /Setting, Quality, Duration, Modifying Factors, Severity) Note limiting factors. Abhi Matos is a 18 y.o. male who presents to the emergency department for 3 days. Started 3 days ago. He thought he slept wrong his neck was sore but then is gradual got worse headache now he has diffuse headache photophobia. Some nausea. No history of headaches no trauma. No fevers chills cough cold congestion. No blurry double vision. Acting appropriate otherwise brought in to be seen. He says he is not getting better with [id number] medication. HPI Historian is the patient Nurse's notes for past medical history, surgical history, social history were reviewed. Medications and allergies reviewed. PAST MEDICAL HISTORY History reviewed. No pertinent past medical history. SURGICALHISTORY History reviewed. No pertinent surgical history. CURRENT MEDICATIONS Previous Medications No medications on file Patient has no known allergies. FAMILY HISTORY No family history on file. SOCIAL HISTORY Social History Socioeconomic History Marital status: Single Tobacco Use Smoking status: Never Smokeless tobacco: Never Social Determinants of Health Food Insecurity: No Food Insecurity (11/20/2023) Received from [employer] [facility] Screening Within the past 12 months we worried whether our food would run out before we got money to buy more.: Never True Within the past 12 months the food we bought just didn't last and we didn't have money to get more.: Never True SCREENINGS PHYSICAL EXAM (up to 7 for level 4, 8 or more for level 5) @EDTRIAGEVSS@ Appropriate PPE including n 95, gown, gloves, goggles where worn when appropriate with this patient. Physical Exam Vital signs reviewed general: Alert and oriented ?3 head: Atraumatic eyes: Equal round reactive to light and accommodating, pupils are equal, round and reactive to light and accommodation oropharynx: Clear and well hydrated neck: Supple heart: Regular rate and rhythm, no murmurs lungs: Clear to auscultation bilaterally Extremities: Moving all fours, no tenderness. Normal capillary refill. Skin: No rash or lesions -to the exposed skin neurologically: Alert and oriented ?3, cranial nerves grossly intact, strength, sensation, reflexes intact. Cerebellar function intact. Gait is steady. NIH equals 0 DIAGNOSTIC RESULTS RADIOLOGY: Interpretation per the Radiologist below, if availableat the time of this note: CT head wo IV contrast Final Result No CT evidence of an acute intracranial abnormality. Report Dictated on Electronically Signed By: Quentin Wilkerson MD Electronically Signed Date/Time: 03/24/2024 3:25 PM EDT ED BEDSIDE ULTRASOUND: Performed by ED Physician - none LABS: Labs Reviewed - No data to display All other labs were within normal range or not returned as of thisdictation. EMERGENCYDEPARTMENT COURSE and DIFFERENTIAL DIAGNOSIS/MDM: Vitals: Vitals: 03/24/24 1429 BP: 136/72 BP Location: Right arm Patient Position: Sitting Pulse: 85 Resp: 18 Temp: 37.1 ?C (98.7 ?F) TempSrc: Oral SpO2: 99% Weight: 56.7 kg (125 lb) Height: 1.702 m (5' 7) Medical Decision Making Problems Addressed: Acute nonintractable headache, unspecified headache type: complicated acute illness or injury Tension headache: complicated acute illness or injury Amount and/or Complexity of Data Reviewed Radiology: ordered. Risk Prescription drug management. EMERGENCY DEPARTMENT COURSE and DIFFERENTIAL DIAGNOSIS/MDM: Vitals: Vitals: 03/24/24 1429 BP: 136/72 BP Location: Right arm Patient Position: Sitting Pulse: 85 Resp: 18 Temp: 37.1 ?C (98.7 ?F) TempSrc: Oral SpO2: 99% Weight: 56.7 kg (125 lb) Height: 1.702 m (5' 7) The patient presented with a chief complaint of headache. The differential diagnosis associated with this patient's presentation includes tumor mass headache tension headache migraine. Our workup consisted of ordering/reviewing CT of the head. I do not believe subarachnoid hemorrhage or meningitis but he is never had headaches before so I think it is reasonable get a CT of the head to make sure is not a tumor. Likely tension headache if that is negative. Will treat him with 1 L of IV fluids. 10 mg IV Reglan 4 mg IV Zofran and 25 mg IV Benadryl. Medicine did not really help the headache. I think this points more towards that this is a tension headache. Not migraine. I do not believe is meningitis. Not the worst of his life. Do not believe lumbar puncture is needed. Will give him 15 of Toradol IV. Will send him home on a short (more content not included)... Normal [facility] CT ABDOMEN AND PELVIS WO CON Ton 10-29-2023 CT ABDOMEN AND PELVIS WO CONT CT ABDOMEN AND PELVIS WO CONT CLINICAL INFORMATION: Left scrotal pain, left testicular pain, renal calculus, abnormal ultrasound. TECHNIQUE: Abdominopelvic CT without contrast. All CT scans at this facility use dose modulation, iterative reconstruction, and/or weight based dosing when appropriate to reduce radiation dose to as low as reasonably achievable. COMPARISON: Retroperitoneal scrotal ultrasound 09/08/2023. FINDINGS LOWER CHEST: The lungs are clear. No pleural or pericardial effusion. HEPATOBILIARY: Unenhanced liver and gallbladder unremarkable. No biliary dilation. PANCREAS: Unenhanced pancreas unremarkable. No pancreatic ductal dilation. SPLEEN: The unenhanced spleen is within normal limits. ADRENAL GLANDS: The unenhanced adrenal glands are within normal limits. KIDNEYS, URETERS, AND BLADDER: Punctate nonobstructing right upper pole renal calculus. Unenhanced left kidney unremarkable. No collecting system dilation. Urinary bladder unremarkable. GI TRACT AND PERITONEUM: Small and large bowel are normal in caliber. Prominent rectal stool. Normal appendix. VASCULATURE: Abdominal aorta is nonaneurysmal. LYMPH NODES: Not enlarged. REPRODUCTIVE ORGANS: Prostate unremarkable. MSK: Vertebral body heights and alignment maintained. IMPRESSION: * Punctate nonobstructing right upper pole renal calculus. Otherwise unremarkable. Approved by Resident Edouard Chiu DO on 10/29/2023 10:33 AM IDaljit MD have personally reviewed the image(s) and agree with and/or edited the report Finalized by Daljit Jimenez MD on 10/29/2023 11:29 AM Normal [facility] US RETROPERITONEAL COMPLETEo n 09-08-2023 US RETROPERITONEAL COMPLETE US RETROPERITONEAL COMPLETE Clinical history: Microhematuria Findings: Multiplanar sonography was performed of the kidneys and bladder. Comparison: None. Right kidney 9.1 cm in length. Left kidney 9.5 cm in length. Cortical echogenicity and thickness unremarkable. Punctate echogenic foci consistent with nonobstructive renal calculi in the right kidney. No ascites. Prevoid bladder volume 16 MLS. Bilateral ureteral jets visualized. Impression: * Nonobstructive renal calculi otherwise unremarkable renal ultrasound. Finalized by Ramses Mckeon MD on 09/08/2023 12:51 PM Normal [facility] US SCROTUM WITH DUPLEXon US SCROTUM WITH DUPLEX US SCROTUM WITH DUPLEX CLINICAL INFORMATION: Other microscopic hematuria, right epididymal cyst. Left varicocele with scrotal pain. TECHNIQUE: Real-time sonographic evaluation of the scrotum and testes was performed with smith scale and color flow imaging. Real time smith scale, color flow imaging and duplex spectral Doppler waveform analysis evaluation was performed of the major arterial inflow and venous outflow structures of the testicles with arterial and venous spectral waveforms obtained and reviewed in view of the clinical history of hematuria, right epididymal cyst, left varicocele, left scrotal pain . Duplex spectral Doppler document arterial and venous spectral waveforms documented within the major arterial inflow and venous outflow of both testicles. Arterial and venous Doppler duplex spectral waveforms were evaluated. COMPARISON: No relevant prior studies available. FINDINGS: Right testis measures 4.1 x 2.7 x 1.7 cm. Left testis measures 4.3 x 2.7 x 1.9 cm. Homogenous parenchymal echotexture of the testes. No solid testicular mass. Benign 1.3 cm right epididymal head cyst. Normal left epididymis. Symmetric color flow the testes. The arterial and venous waveforms are within normal limits. No hydrocele. No convincing varicocele. IMPRESSION: * No significant scrotal abnormality. Finalized by Jovani Wasserman MD on 09/08/2023 3:37 PM Normal [facility] Microscopic, urineon 024 Epithelial cells Auto (Urine sed) [#/Area] [facility] Interpretation and review of laboratory results Abnormal [facility] Mucus Ql (Urine sed) PRESENT Abnormal NONE^NONE [facility] RBC Auto (Urine sed) [#/Area] [facility] WBC Auto (Urine sed) [#/Area] [facility] UA (MICROSCOPIC)on 4 MUCOUS PRESENT Abnormal NONE [facility] R.B.CELLS <1 Normal 0-5 [facility] SQUAMOUS EPITHELIUM <1 Normal 0-5 [facility] W.B.CELLS <1 Normal 0-5 [facility] GROUP A STREP CULTUREon 05-01 S. pyogenes Ag Ql (Unsp spec) Culture Observations: NEGATIVE FOR GROUP A STREPTOCOCCUS. Normal [facility] Comment on above: Performed By: #### G RASTCX #### [facility] [address] [place] [address] Dr. Teresa Lopez INFLUENZA A AND B AGon 05-28 INFLUENZA A AG Negative Normal NEGATIVE SEE COMMENT [facility] Comment on above: Performed By: #### I NFLUAB #### [facility] [address] [place] [address] Dr. Teresa Lopez INFLUENZA B AG Negative Normal NEGATIVE SEE COMMENT [facility] Comment on above: Performed By: #### I NFLUAB #### [facility] [address] [address] [address] Teresa Lopez INFLUPOSH SEE BELOW Normal [facility] Comment on above: Result Comment: NOTE : Live attenuated influenzae vaccine viruses can cause a positive result for a rapid influenza diagnostic test if administered up to 7 days prior to rapid testing. Performed By: #### I NFLUAB #### [facility] [address] [place] [address] Dr. Teresa Lopez INFLUPOSHB SEE BELOW Normal [facility] Comment on above: Result Comment: NOTE : Live attenuated influenzae vaccine viruses can cause a positive result for a rapid influenza diagnostic test if administered up to 7 days prior to rapid testing. Performed By: #### I NFLUAB #### [facility] [address] [place] [address] Dr. Teresa Lopez INTERNAL CONTROLS Within Normal Limits Normal Wi thin Normal Limits [facility] Comment on above: Performed By: #### I NFLUAB #### [facility] [address] [place] [address] Dr. Teresa Lopez STREPT SCREENon 05-28-2022 STREP SCREEN A Negative Normal NEGATIVE [facility] Comment on above: Performed By: #### S SCRN #### [facility] [address] [place] [address] Dr. Teresa Lopez ECHOCARDIO M/2D COMPLETEon 1 ECHOCARDIO M/2D COMPLETE Patient: ABHI MATOS Exam Date: 04/22/2022 : 2005 Gender:M Ordering : DR ILIANA YU . Admission #: [id number] Family : Order #: [id number] CLICK HERE TO VIEW EXAM ECHOCARDIOGRAM REPORT PROCEDURE: CARDIO PULMONARY ECHOCARDIO M/2D COMP INDICATIONS: Chest pain COMPARISON: None. DESCRIPTION: COMPLETE ECHOCARDIOGRAM Real-time transthoracic echocardiography with 2D, M-mode, spectral and color flow Doppler performed. QUALITY: Technical quality was good. LEFT VENTRICLE: Normal chamber size. Normal left ventricular wall thickness. Global left ventricular systolic function is normal. LV EF: Calculated left ventricular ejection fraction is 66%. DIASTOLIC: Normal diastolic function. ATRIAL SEPTUM: LEFT ATRIUM: Normal chamber size. RIGHT ATRIUM: Normal chamber size. RIGHT VENTRICLE: Normal chamber size. Normal right ventricular systolic function. TRICUSPID VALVE: Normal mobility and thickness. No stenosis with trivial regurgitation. No evidence of pulmonary hypertension. RVSP 17 mmHg MITRAL VALVE: Normal mobility and thickness. No mitral valve prolapse. No evidence of mitral valve stenosis. There is no mitral annular calcification. No mitral regurgitation. AORTIC VALVE: Normal trileaflet appearance. No visible sclerosis. Normal leaflet mobility. No evidence of aortic valve stenosis. No aortic regurgitation. AORTIC ROOT: Normal diameter and appearance. PULMONIC VALVE: Normal thickness and mobility. No stenosis. Trivial regurgitation. PERICARDIUM: No evidence of pericardial effusion. IVC: Collapses with inspirations. Normal size. The coronary sinus is dilated and prominent. PLEURA: CONCLUSION: 1. Normal ventricular sizes and systolic function. LVEF is 65 to 70%. 2. Normal diastolic function. 3. No significant valvular dysfunction. 4. No pericardial effusion. 5. The coronary sinus is prominent and dilated. 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 Agitated saline was not administered during this study to confirm the finding. Adult Echocardiography Procedure Report Left Ventricle LVEDD (3.7 - 5.6 cm): 4.89 cm LVESD (2.2 - 4.0 cm): 3.32 cm LVIVS thickness (0.6 - 1.2 cm): 0.78 cm LVPW thickness (0.5 - 1.0 cm): 0.82 cm e': 0.21 m/s E - e': 4.57 LVOT Max Gradient: 3.25 mm[Hg] Peak Velocity (LVOT): 0.90 m/s Mean Velocity (LVOT): 0.49 m/s LVOT Diameter 1.96 cm Left Ventricular Ejection Fraction: 65-70% Left Atrium LA Volume Index (2D A2C): 38.58 ml, 38.58 ml Left Atrium Systolic Dimension: 2.78 cm Mitral Valve MV E to A Ratio: 2.03, 1.80 Mitral Valve A-Wave Peak Velocity: 0.50 m/s, 0.51 m/s Mitral Valve E-Wave Peak Velocity: 1.01 m/s, 0.92 m/s Right Ventricle RV Internal Diastolic Dimension: 3.00 cm Aorta AO Root Diam: 3.08 cm Ascending Ao Diam: 2.02 cm Aortic Valve AoV Area (Peak Haider): 2.32 cm2, 2.32 cm2 AoV Area (VTI): 2.17 cm2, 2.17 cm2 Peak Velocity(Antegrade Flow): 1.16 m/s Peak Gradient(Antegrade Flow): 5.42 mm[Hg] Mean Velocity(Antegrade Flow): 0.80 m/s Mean Gradient(Antegrade Flow): 2.94 mm[Hg] Velocity Time Integral: 26.00 cm Tricuspid Valve Peak Velocity (Regurgitant Flow): 2.03 m/s, 1.86 m/s Peak Velocity: 0.70 m/s Pulmonic Valve Mean Gradient: 3.59 mm[Hg], 3.41 mm[Hg] Mean Velocity: 0.92 m/s, 0.90 m/s Peak Velocity: 1.17 m/s, 1.09 m/s, 1.18 m/s Peak Gradient: 5.59 mm[Hg], 5.44 mm[Hg], 4.71 mm[Hg] Right Atrium Right Atrium Systolic Pressure: 32.77 ml, 32.77 ml Dictated by: Liu Kuhn M.D. on 04/30/2022 at 10:36 Approved by: Liu Kuhn M.D. on 04/30/2022 at 10:56 Normal [facility] STRESS/REST MULTIon 04-22 [place] STRESS/REST MULTI Patient: ABHI MATOS Exam Date: 04/22/2022 : 2005 Gender:M Ordering : DR ILIANA YU . Admission #: [id number] Family : Order #: [id number] CLICK HERE TO VIEW EXAM RADIOLOGY REPORT PROCEDURE: RADIONUCLIDE IMAGING STRESS/REST MULTI COMPARISON: None. INDICATIONS: Chest pain TECHNIQUE: Exam Description: Rest/Stress one day protocol gated SPECT Rest Imagin.3 mCi Tc-99m Cardiolite IV on 04/22/2022 Stress Imaging 29.1 mCi Tc-99m Cardiolite IV on 04/22/2022 Exercise Protocol: Edmund Heart Rate (bpm): Rest: 60 Max: 171 PMHR: 85 Blood Pressure: Rest: 96/68 Max: 142/84 Exercise Time: Minutes: 12 Seconds: 00 Stage Reached: Stage: 4 Mets 13.4 Symptoms: Rest and peak stress ECG findings were abnormal and the exercise portion of the study was Non-diagnostic per attending physician Dr. Rutherford due to T-waves in aVL at baseline biphasic became inverted during exercise then positive (normal) at end of rest. . For more details please see separate cardiac stress test report. FINDINGS: QUALITY OF STUDY: Good. PERFUSION DEFECT: None. LOCATION: N/A SIZE: N/A. SEVERITY: N/A. TYPE: N/A. WALL MOTION: Normal. LV SIZE: Normal. 92 mL. TID / TCD: None; 1.0 LVEF: Normal. Calculated EF 59%. SUMMARY: Myocardial perfusion imaging study is NORMAL. CONCLUSION: 1. No reversible ischemia 2. Abnormal EKG findings 3. Abnormal exercise study Dictated by: Carlos Turner MD on 04/23/2022 at 08:01 Approved by: Carlos Turner MD on 04/23/2022 at 08:02 Normal [facility] XR ankle LT min 3V*on 2021 XR ankle LT min 3V* [facility] [employer] Other XR ankle LT min 3V* [facility] I Do Now I Don't Other XR ankle LT min 3V* [address] [place] [address] [employer] Other XR ankle LT min 3V* [place] [address] [employer] Other XR ankle LT min 3V* XRay Report [facility] [employer] Other XR ankle LT min 3V* Signed [employer] Other XR ankle LT min 3V* Patient: Abhi Matos MR#: [id number] [place] [employer] Other XR ankle LT min 3V* 726 [employer] Other XR ankle LT min 3V* : 2005 Acct:[id number] [employer] Other XR ankle LT min 3V* Age/Sex: 16 / M ADM Date: 11/24/21 [employer] Other XR ankle LT min 3V* Loc: XDUCLY [facility]: [facility] [employer] Other XR ankle LT min 3V* Attending Dr: Ramses Portillo [employer] Other XR ankle LT min 3V* Ordering Provider: Ramses Portillo [facility] Industries[facility] [employer] Other XR ankle LT min 3V* Date of Service: 11/24/21 [employer] Other XR ankle LT min 3V* XR/XR ankle LT min 3V*: Injury of left ankle, initial encounter [employer] Other XR ankle LT min 3V* Copies to: Ramses Portillo [employer] Other XR ankle LT min 3V* 3views LEFTankle [employer] Other XR ankle LT min 3V* COMPARISON:None [employer] Other XR ankle LT min 3V* HISTORY: LEFT ankle injury [employer] Other XR ankle LT min 3V* No fracture, dislocation or focal soft tissue abnormality seen. [employer] Other XR ankle LT min 3V* XR/XR ankle LT min 3V* [employer] Other XR ankle LT min 3V* IMPRESSION: No acute findings. [employer] Other XR ankle LT min 3V* Impression dictated by: Chetan Pierre M.D.11/24/2021 10:53 AM [employer] Other XR ankle LT min 3V* Dictation Location: RADIO-PC-03 [employer] Other XR ankle LT min 3V* Transcribed By: PWS 11/24/21 1053 [employer] Other XR ankle LT min 3V* Dictated By: Chetan Pierre DO 11/24/21 1052 [employer] Other XR ankle LT min 3V* Signed By: [employer] Other XR ankle LT min 3V* 11/24/21 1053 No rt [employer] Other CBC AUTO DIFFon 11-07-2021 BASO # 0.1 103/ul Normal 0.0-0.1 [facility] Comment on above: Performed By: #### C BC #### [facility] [address] [place] [address] Dr. Teresa Lopez Basophils/100 WBC (Bld) 1.3 % Normal 0.2-2.0 [facility] Comment on above: Performed By: #### C BC #### [facility] [address] [place] [address] Dr. Teresa Lopez EO # 0.0 103/ul Normal 0.0-0.7 [facility] Comment on above: Performed By: #### C BC #### [facility] [address] [place] [address] Dr. Teresa Lopez Eosinophils/100 WBC (Bld) 0.9 % Normal 0.9-7.0 [facility] Comment on above: Performed By: #### C BC #### [facility] [address] [place] [address] Dr. Teresa Lopez Erythrocyte distribution width (RBC) [Ratio] 11.8 % Normal 11.0-15.0 [facility] Comment on above: Performed By: #### C BC #### [facility] [address] [place] [address] Dr. Teresa Lopez Hematocrit (Bld) [Volume fraction] 46.6 % Normal 42.0-54.0 [facility] Comment on above: Performed By: #### C BC #### [facility] [address] [place] [address] Dr. Teresa Lopez Hemoglobin (Bld) [Mass/Vol] 15.6 g/dL Normal 14.0-18.0 [facility] Comment on above: Performed By: #### C BC #### [facility] [address] [place] [address] Dr. Teresa Lopez IG # 0.02 10e3/ul Normal 0.00-0.03 [facility] Comment on above: Performed By: #### C BC #### [facility] [address] [place] [address] Dr. Teresa Lopez IG % 0.4 % Normal 0.0-0.5 [facility] Comment on above: Performed By: #### C BC #### [facility] [address] [place] [address] Dr. Teresa Lopez LYMPH # 1.7 103/ul Normal 1.2-3.8 [facility] Comment on above: Performed By: #### C BC #### [facility] [address] [place] [address] Dr. Teresa Lopez Lymphocytes/100 WBC (Bld) 36.1 % Normal 20.5-60.0 [facility] Comment on above: Performed By: #### C BC #### [facility] [address] [place] [address] Dr. Teresa Lopez MANUAL DIFF REQ NO Normal [facility] Comment on above: Performed By: #### C BC #### [facility] [address] [place] [address] Dr. Teresa Lopez MCH (RBC) [Entitic mass] 32.0 pg Normal 25.9-34.0 [facility] Comment on above: Performed By: #### C BC #### [facility] [address] [place] [address] Dr. Teresa Lopez MCHC (RBC) [Mass/Vol] 33.5 g/dL Normal 29.9-35.2 [facility] Comment on above: Performed By: #### C BC #### [facility] [address] [address] [address] Teresa Lopez MCV (RBC) [Entitic vol] 95.5 fL Critically high 80.0-94.0 [facility] Comment on above: Performed By: #### C BC #### [facility] [address] [place] [address] Dr. Teresa Lopez MONO # 0.5 103/ul Normal 0.3-0.8 [facility] Comment on above: Performed By: #### C BC #### [facility] [address] [place] [address] Dr. Teresa Lopez Monocytes/100 WBC (Bld) 10.4 % Normal 1.7-12.0 [facility] Comment on above: Performed By: #### C BC #### [facility] [address] [place] [address] Dr. Teresa Lopez NEUT # 2.3 103/ul Normal 1.4-6.5 [facility] Comment on above: Performed By: #### C BC #### [facility] [address] [place] [address] Dr. Teresa Lopez Neutrophils/100 WBC (Bld) 50.9 % Normal 43.0-75.0 [facility] Comment on above: Performed By: #### C BC #### [facility] [address] [place] [address] Dr. Teresa Lopez Platelet mean volume (Bld) [Entitic vol] 8.6 fL Critically low 9.5-13.5 [facility] Comment on above: Performed By: #### C BC #### [facility] [address] [place] [address] Dr. Teresa Lopez PLT 240 103/ul Normal 150-450 [facility] Comment on above: Performed By: #### C BC #### [facility] [address] [place] [address] Dr. Teresa Lopez RBC 4.88 106/ul Normal 4.70-6.10 [facility] Comment on above: Performed By: #### C BC #### [facility] [address] [place] [address] Dr. Teresa Lopez WBC 4.6 103/ul Normal 4.0-11.0 [facility] Comment on above: Performed By: #### C BC #### [facility] [address] [place] [address] Dr. Teresa Lopez D-DIMERon 11-07-2021 D-DIMER 0.19 mg/L FEU Normal 0.19-0.50 [facility] Comment on above: Performed By: #### D DIM #### [facility] [address] [place] [address] Dr. Teresa Lopez D-DIMER COMMENTS SEE BELOW Normal [facility] Comment on above: Result Comment: Incr eases in D-Dimer concentration observed with thromboembolic events can be variable due to localization, size, and age of the thrombus. Therefore, a thromboembolic event cannot be diagnosed with certainty on the basis of the reference range. D-Dimers may also be elevated for a variety of disorders including: advanced age, , coronary disease, cancer, liver disease, infection, inflammation, hematoma, DIC, trauma, post-surgery, diabetes, thrombolytic or anticoagulant therapy, stress, and generalized hospitalization. Performed By: #### D DIM #### [facility] [address] [place] [address] Dr. Teresa Lopez PROF CHEM 8 (BAS METB)on Anion gap [Moles/Vol] 10.7 mmol/L Normal [facility] Comment on above: Performed By: #### H KAIPN, BMP #### [facility] [address] [place] [address] Dr. Teresa Lopez Calcium [Mass/Vol] 9.3 mg/dL Normal 8.5-10.1 [facility] Comment on above: Performed By: #### H KAIPN, BMP #### [facility] [address] [place] [address] Dr. Teresa Lopez Chloride [Moles/Vol] 103 mmol/L Normal 98-107 [facility] Comment on above: Performed By: #### H KAIPN, BMP #### [facility] [address] [address] [address] Teresa Lopez CO2 [Moles/Vol] 30.2 mmol/L Normal 21.0-32.0 [facility] Comment on above: Performed By: #### H STROPN, BMP #### [facility] [address] [address] [address] Teresa Lopez Creatinine [Mass/Vol] 1.10 mg/dL Normal 0.70-1.30 [facility] Comment on above: Performed By: #### H STROPN, BMP #### [facility] [address] [address] [address] Teresa Lopez EGFR-AF [place]ORE[place] >60 Normal >=60 [facility] Comment on above: Performed By: #### H STROPN, BMP #### [facility] [address] [place] [address] Dr. Teresa Lopez EGFR-NON AF [place] >60 Normal >=60 [facility] Comment on above: Performed By: #### H STROPN, BMP #### [facility] [address] [address] [address] Teresa Lopez Glucose [Mass/Vol] 94 mg/dL Normal 74-106 [facility] Comment on above: Performed By: #### H STROPN, BMP #### [facility] [address] [address] [address] Teresa Lopez Potassium [Moles/Vol] 3.9 mmol/L Normal 3.5-5.1 [facility] Comment on above: Performed By: #### H STROPN, BMP #### [facility] [address] [address] [address] Teresa Lopez Sodium [Moles/Vol] 140 mmol/L Normal 136-145 [facility] Comment on above: Performed By: #### H STROPN, BMP #### [facility] [address] [address] [address] Teresa Lopez Urea nitrogen [Mass/Vol] 11.0 mg/dL Normal 6.4-19.3 [facility] Comment on above: Performed By: #### H STROPN, BMP #### [facility] [address] [place], [place] [address] Dr. Teresa Lopez Urea nitrogen/Creatinine [Mass ratio] 10.0 mg/mg Normal [facility] Comment on above: Performed By: #### H PIETRO, OSWALDO #### [facility] [address] [address] [address] Teresa Lopez TROPONIN, HIGH SENSITIVITYon 11-07-2021 HSTROP 4.2 pg/mL Normal 4.0-76.1 [facility] Comment on above: Result Comment: CUT- OFF POINTS HAVE BEEN ESTABLISHED BASED ON THE FOURTH UNIVERSAL DEFINITIONS OF MYOCARDIAL INFARCTION. THE UPPER REFERENCE LIMIT (URL) OF TROPONIN, DEFINED THE 99TH PERCENTILE OF cTnI DISTRIBUTION IN A REFERENCE POPULATION, HAS BEEN CONFIRMED THE DECISION THRESHOLD FOR ME DIAGNOSIS. Performed By: #### H PIETRO, OSWALDO #### [facility] [address] [address] [address] Teresa Lopez XR CHEST 1 Von 11-07-2021 XR CHEST 1 V EXAMINATION: XR CHEST 1 V HISTORY: CHEST PAIN, UNSPECIFIED COMPARISON: XR chest 07/11/2019 FINDINGS: LUNGS: No significant pulmonary parenchymal abnormalities. VASCULATURE: No increased pulmonary vasculature. PLEURA: No pneumothorax, effusion, or pleural thickening. CARDIAC: No cardiomegaly or cardiac silhouette abnormality. MEDIASTINUM: No visible mass or adenopathy. BONES: No fracture or visible bone lesion. OTHER: Negative. IMPRESSION: 1. Normal examination. Electronically authenticated by: DALJIT CAPPS Date: 2021-11-07 10:10 Normal [facility] Vital Signs Date Time Vital Sign Value Performing Clinician Facility 02-08-2025 10:58-0400 Diastolic blood pressure 68 mm[Hg] Justice Bass MD Work Phone: [facility] 02-08-2025 10:58-0400 Systolic blood pressure 124 mm[Hg] Justice Bass MD Work Phone: [facility] 02-08-2025 10:54-0400 Body height 170.2 cm Justice Bass MD Work Phone: [facility] 02-08-2025 10:54-0400 Body mass index (BMI) [Ratio] 20.67 kg/m2 Justice Bass MD Work Phone: [facility] 02-08-2025 10:54-0400 Body weight 59.88 kg Justice Bass MD Work Phone: [facility] 02-08-2025 10:54-0400 Heart rate 70 /min Justice Bass MD Work Phone: [facility] 01-03-2025 09:31-0400 Body temperature 97.5 [degF] Stacy Jose Cruz DO Work Phone: [facility] 01-03-2025 09:31-0400 Diastolic blood pressure 76 mm[Hg] Stacy Jose Cruz DO Work Phone: [facility] 01-03-2025 09:31-0400 Heart rate 80 /min Stacy Jose Cruz DO Work Phone: [facility] 01-03-2025 09:31-0400 Respiratory rate 14 /min Stacy Jose Cruz DO Work Phone: [facility] 01-03-2025 09:31-0400 SaO2% (BldA) [Mass fraction] 100 % Stacy Jose Cruz DO Work Phone: [facility] 01-03-2025 09:31-0400 Systolic blood pressure 126 mm[Hg] Stacy Jose Cruz DO Work Phone: [facility] 01-03-2025 07:26-0400 Body height 170.2 cm Stacy Jose Cruz DO Work Phone: [facility] 01-03-2025 07:26-0400 Body mass index (BMI) [Ratio] 20.36 kg/m2 Stacy Jose Cruz DO Work Phone: [facility] 01-03-2025 07:26-0400 Body weight 58.97 kg Stacy Jose Cruz DO Work Phone: [facility] 01-01-2025 23:49-0400 Body temperature 98.29 [degF] Stephania Gore MD Work Phone: [facility] 01-01-2025 23:49-0400 Diastolic blood pressure 61 mm[Hg] Stephania Gore MD Work Phone: [facility] 01-01-2025 23:49-0400 Heart rate 70 /min Stephania Gore MD Work Phone: [facility] 01-01-2025 23:49-0400 Respiratory rate 16 /min Stephania Gore MD Work Phone: [facility] 01-01-2025 23:49-0400 SaO2% (BldA) [Mass fraction] 100 % Stephania Gore MD Work Phone: [facility] 01-01-2025 23:49-0400 Systolic blood pressure 129 mm[Hg] Stephania Gore MD Work Phone: [facility] 03-28-2024 19:06-0400 Body temperature 98.2 [degF] Stephania Gore MD Work Phone: [facility] 03-28-2024 19:06-0400 Diastolic blood pressure 62 mm[Hg] Stephania Gore MD Work Phone: [facility] 03-28-2024 19:06-0400 Heart rate 80 /min Stephania Gore MD Work Phone: [facility] 03-28-2024 19:06-0400 Respiratory rate 16 /min Stephania Gore MD Work Phone: [facility] 03-28-2024 19:06-0400 SaO2% (BldA) [Mass fraction] 100 % Stephania Gore MD Work Phone: [facility] 03-28-2024 19:06-0400 Systolic blood pressure 130 mm[Hg] Stephania Gore MD Work Phone: [facility] 03-28-2024 18:33-0400 Body height 170.2 cm Stephania Gore MD Work Phone: [facility] 03-28-2024 18:33-0400 Body mass index (BMI) [Ratio] 19.58 kg/m2 Stephania Gore MD Work Phone: [facility] 03-28-2024 18:33-0400 Body weight 56.7 kg Stephania Gore MD Work Phone: [facility] 03-24-2024 16:12-0400 Diastolic blood pressure 78 mm[Hg] Jose G Orellana MD Work Phone: [facility] 03-24-2024 16:12-0400 Heart rate 75 /min Jose G Orellana MD Work Phone: [facility] 03-24-2024 16:12-0400 Respiratory rate 18 /min Jose G Orellana MD Work Phone: [facility] 03-24-2024 16:12-0400 SaO2% (BldA) [Mass fraction] 99 % Jose G Orellana MD Work Phone: [facility] 03-24-2024 16:12-0400 Systolic blood pressure 124 mm[Hg] Jose G Orellana MD Work Phone: [facility] 03-24-2024 14:29-0400 Body height 170.2 cm Jose G Orellana MD Work Phone: [facility] 03-24-2024 14:29-0400 Body mass index (BMI) [Ratio] 19.58 kg/m2 Jose G Orellana MD Work Phone: [facility] 03-24-2024 14:29-0400 Body temperature 98.71 [degF] Jose G Orellana MD Work Phone: [facility] 03-24-2024 14:29-0400 Body weight 56.7 kg Jose G Orellana MD Work Phone: [facility] 11-20-2023 08:40-0400 Body height 170.2 cm Bertha Khalil Jr., MD Work Phone: [facility] 11-20-2023 08:40-0400 Body mass index (BMI) [Ratio] 19.73 kg/m2 Bertha Khalil Jr., MD Work Phone: [facility] 11-20-2023 08:40-0400 Body weight 57.15 kg Bertha Khalil Jr., MD Work Phone: [facility] 11-20-2023 08:40-0400 Diastolic blood pressure 61 mm[Hg] Bertha Khalil Jr., MD Work Phone: [facility] 11-20-2023 08:40-0400 Heart rate 72 /min Bertha Khalil Jr., MD Work Phone: [facility] 11-20-2023 08:40-0400 Systolic blood pressure 115 mm[Hg] Bertha Khalil Jr., MD Work Phone: [facility] 10-09-2023 08:25-0400 Body height 170.2 cm Bertha Khalil Jr., MD Work Phone: [facility] 10-09-2023 08:25-0400 Body mass index (BMI) [Ratio] 19.73 kg/m2 Bertha Khalil Jr., MD Work Phone: [facility] 10-09-2023 08:25-0400 Body weight 57.15 kg Bertha Khalil Jr., MD Work Phone: [facility] 10-09-2023 08:25-0400 Diastolic blood pressure 61 mm[Hg] Bertha Khalil Jr., MD Work Phone: [facility] 10-09-2023 08:25-0400 Heart rate 61 /min Bertha Khalil Jr., MD Work Phone: [facility] 10-09-2023 08:25-0400 Systolic blood pressure 110 mm[Hg] Bertha Khalil Jr., MD Work Phone: [facility] 09-04-2023 10:20-0500 Body height 170.2 cm Bertha Khalil Jr., MD Work Phone: [facility] 09-04-2023 10:20-0500 Body mass index (BMI) [Ratio] 19.73 kg/m2 Bertha Khalil Jr., MD Work Phone: [facility] 09-04-2023 10:20-0500 Body weight 57.15 kg Bertha Khalil Jr., MD Work Phone: [facility] 09-04-2023 10:20-0500 Diastolic blood pressure 63 mm[Hg] Bertha Khalil Jr., MD Work Phone: [facility] 09-04-2023 10:20-0500 Heart rate 74 /min Bertha Khalil Jr., MD Work Phone: [facility] 09-04-2023 10:20-0500 Systolic blood pressure 116 mm[Hg] Bertha Khalil Jr., MD Work Phone: [facility] 02-11-2023 14:50-0400 Body height 170.18 cm [facility] Work Phone: 02-11-2023 14:50-0400 Body mass index (BMI) [Percentile] Per age and sex 4.2 % [facility] Work Phone: 02-11-2023 14:50-0400 Body mass index (BMI) [Ratio] 18.8 kg/m2 [facility] Work Phone: 02-11-2023 14:50-0400 Body temperature 98.6 [degF] [facility] Work Phone: 02-11-2023 14:50-0400 [facility]: 02-11-2023 14:50-0400 Diastolic blood pressure 71 mm[Hg] [facility] Work Phone: 02-11-2023 14:50-0400 Heart rate 90 /min [facility] Work Phone: 02-11-2023 14:50-0400 Respiratory rate 14 /min [facility] Work Phone: 02-11-2023 14:50-0400 SaO2% (BldA) [Mass fraction] 100 % [facility] Work Phone: 02-11-2023 14:50-0400 Systolic blood pressure 106 mm[Hg] [facility] Work Phone: 02-10-2023 22:09-0400 Body height 170.18 cm [facility] Work Phone: 02-10-2023 22:09-0400 Body mass index (BMI) [Percentile] Per age and sex 99.7 % [facility] Work Phone: 02-10-2023 22:09-0400 Body mass index (BMI) [Ratio] 41.4 kg/m2 [facility] Work Phone: 02-10-2023 22:09-0400 Body temperature 97.9 [degF] [facility] Work Phone: 02-10-2023 22:09-0400 Body weight 120 kg [facility] Work Phone: 02-10-2023 22:09-0400 Diastolic blood pressure 58 mm[Hg] [facility] Work Phone: 02-10-2023 22:09-0400 Heart rate 68 /min [facility] Work Phone: 02-10-2023 22:09-0400 Respiratory rate 18 /min [facility] Work Phone: 02-10-2023 22:09-0400 SaO2% (BldA) [Mass fraction] 100 % [facility] Work Phone: 02-10-2023 22:09-0400 Systolic blood pressure 137 mm[Hg] [facility] Work Phone: 11-24-2021 11:00-0400 Body height 167.64 cm Ramses Portillo Other [employer] Other 11-24-2021 11:00-0400 Body mass index (BMI) [Ratio] 21.04 kg/m2 Ramses Portillo Other [employer] Other 11-24-2021 11:00-0400 Body temperature 98 [degF] Ramses Portillo Other [employer] Other 11-24-2021 11:00-0400 Body weight 59.15 kg Ramses Portillo Other [employer] Other 11-24-2021 11:00-0400 Diastolic blood pressure 68 mm[Hg] Ramses Portillo Other [employer] Other 11-24-2021 11:00-0400 Respiratory rate 18 /min Ramses Portillo Other [employer] Other 11-24-2021 11:00-0400 SaO2% (BldA) [Mass fraction] 98 % Ramses Portillo Other [employer] Other 11-24-2021 11:00-0400 Systolic blood pressure 116 mm[Hg] Ramses Portillo Other [employer] Other Encounters Encounter Date Encounter Type Care Provider Facility Start: 02-09-2025 End: 02-09-[facility] Start: 02-08-2025 End: 02-08-2025 [facility] Start: 02-08-2025 End: 02-08-2025 Office outpatient new 45 minutes Justice Bass MD Work Phone: [facility] Comment on above: 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); Palpitations; Tachycardia, unspecified; BMI 20.0-20.9, adult; Never smoked tobacco Start: 01-18-2025 End: 01-18-2025 Patient encounter procedure Iliana Yu -Cardio Pulmonary Start: 01-18-2025 End: 01-18-2025 ambulatory [facility] Work Phone: Start: 01-10-2025 End: 01-10-2025 Patient encounter procedure Iliana Yu -Laboratory Start: 01-10-2025 End: 01-10-2025 ambulatory [facility] Work Phone: Start: 01-03-2025 End: 01-03-2025 Emergency department patient visit Stacy Billingsley DO Work Phone: [facility] Comment on above: Chest pain, unspecif ied type (Primary Dx); Neck pain Start: 01-01-2025 End: 01-02-2025 Emergency department patient visit Stephania Gore MD Work Phone: [facility] Comment on above: Neck pain (Primary D x) Start: 12-14-2024 End: 12-14-2024 Emergency department patient visit Frantzjamal Mendoza Facility:[facility] Start: 03-28-2024 End: 03-28-2024 Emergency department patient visit Stephania Gore MD Work Phone: [facility] Comment on above: Headache disorder (P rimary Dx) Start: 03-24-2024 End: 03-24-2024 Subsequent hospital visit by physician [facility] [address] Exam Room [address] [facility] [address] Comment on above: Arrived Start: 03-24-2024 End: 03-24-2024 Emergency department patient visit Jose G Orellana MD Work Phone: [facility] Comment on above: Acute nonintractable headache, unspecified headache type (Primary Dx); Tension headache Start: 01-22-2024 End: 01-22-2024 Documentation procedure Bertha Khalil MD Work Phone: [facility] Start: 01-22-2024 End: 01-22-2024 Telephone encounter Bertha Khalil MD Work Phone: [facility] Start: 01-18-2024 End: 01-18-2024 Telephone encounter Mandy Johnnie SANDOVAL [facility] Start: 11-20-2023 End: 11-20-2023 ambulatory BERTHA KHALIL [facility] Start: 11-20-2023 End: 11-20-2023 Office outpatient visit 25 minutes Bertha Khalil MD Work Phone: [facility] Comment on above: Left varicocele (Elsa cheryl Dx); Left testicular pain; Urologic disorders; Right kidney stone; Other microscopic hematuria; Epididymal cyst Start: 10-29-2023 End: 10-30-2023 ambulatory BERTHA KHALIL [facility] Start: 10-15-2023 ambulatory CAROLYN Babbi ty:SO[facility] Lopez Start: 10-09-2023 End: 10-09-2023 ambulatory [facility] Start: 10-09-2023 End: 10-09-2023 Office outpatient visit 25 minutes Bertha Khalil MD Work Phone: [facility] Comment on above: Left testicular pain (Primary Dx); Urologic disorders; Other microscopic hematuria; Epididymal cyst; Left varicocele; Right kidney stone Start: 09-08-2023 End: 09-09-2023 ambulatory BERTHA KHALIL [facility] Start: 09-04-2023 End: 09-05-2023 ambulatory BERTHA KHALIL JR [facility] Start: 09-04-2023 End: 09-04-2023 ambulatory BERTHA KHALIL [facility] Start: 09-04-2023 End: 09-04-2023 Office consultation new/estab patient 60 min Bertha Khalil MD Work Phone: [facility] Comment on above: Urologic disorders ( Primary Dx); Left testicular pain; Epididymal cyst; Other microscopic hematuria Start: 07-02-2023 End: 07-03-2023 ambulatory CAROLYN CASTRO [facility] Start: 04-16-2023 End: 04-16-2023 ambulatory [facility] Work Phone: Start: 04-16-2023 End: 04-16-2023 Patient encounter procedure [facility] Start: 02-11-2023 End: 02-11-2023 [facility]: Start: 02-10-2023 End: 02-10-2023 [facility] Work Phone: Start: 05-28-2022 End: 05-28-[address] ILIANA YU Facility:[facility] Start: 05-28-2022 End: 05-28-2022 Emergency department patient visit [facility]- Start: 04-22-2022 End: 04-23-[address] ILIANA YU Facility:[facility] Start: 04-22-2022 End: 04-22-2022 Patient encounter procedure [facility]- Start: 04-04-[address] ILIANA YU Facility :[facility] Start: 04-04-2022 End: 04-04-2022 Departed Referred [facility]- Start: 03-06-2022 End: 03-07-[address] ILIANA YU Facility:[facility] Start: 03-06-2022 End: 03-06-2022 Patient encounter procedure [facility]- Start: 03-05-2022 End: 03-05-2022 Emergency department patient visit ILIANA YU [facility] Start: 11-24-2021 End: 11-24-2021 ambulatory Ramses Portillo Other [employer] Other Start: 11-24-2021 Office outpatient vi sit 25 minutes Ramses Portillo [facility] Start: 11-07-2021 End: 11-07-[address] ILIANA HOY Facility:[facility] Start: 11-07-2021 End: 11-07-2021 Emergency department patient visit [facility]- Start: 06-03-2021 End: 06-03-2021 Patient encounter procedure [facility]- Start: 04-04-2021 End: 04-04-2021 Departed Referred [facility]- Start: 10-22-2020 End: 10-22-2020 Emergency department patient visit [facility]- Start: 07-08-2020 End: 07-08-2020 Emergency department patient visit [facility]- Start: 06-30-2020 End: 06-30-2020 Patient encounter procedure [facility]- Start: 03-26-2020 End: 03-26-2020 Patient encounter procedure [facility]- Start: 07-14-2019 End: 07-14-2019 Emergency department patient visit [facility]- Start: 07-12-2019 End: 07-12-2019 Evaluation and management of inpatient [facility]- Start: 05-04-2019 End: 05-04-2019 Emergency department patient visit [facility]- Start: 07-15-2018 End: 07-15-2018 Emergency department patient visit [facility]- Start: 05-28-2018 End: 05-28-2018 Emergency department patient visit [facility]- Start: 03-04-2018 End: 03-04-2018 Emergency department patient visit [facility]- Start: 06-11-2017 End: 06-11-2017 Patient encounter procedure [facility]- Start: 01-21-2017 End: 01-21-2017 Patient encounter procedure [facility]- Start: 07-13-2015 End: 07-13-2015 Patient encounter procedure [facility]- Start: 07-06-2015 End: 07-06-2015 Emergency department patient visit [facility]- Start: 11-06-2014 End: 11-06-2014 Emergency department patient visit [facility]- Start: 10-29-2014 End: 10-29-2014 Emergency department patient visit [facility]- Start: 06-22-2009 End: 06-22-2009 Emergency department patient visit [facility]- Start: 12-07-2007 End: 12-07-2007 Emergency department patient visit [facility]- Start: 02-19-2007 End: 02-19-2007 Emergency department patient visit [facility] Procedures Date Procedure Procedure Detail Performing Clinician Start: 02-08-2025 Ecg routine ecg w/le ast 12 lds w/i&r Justice Bass MD Work Phone: Start: 01-18-2025 Echocardiography Start: 01-10-2025 Measurement of renal function Start: 01-03-2025 Ct cervical spine w/ o contrast material Stacy Billingsley DO Work Phone: Start: 01-03-2025 Ct head/brain w/o co ntrast material Stacy Billingsley DO Work Phone: Start: 01-03-2025 End: 01-03-2025 Comprehensive metabolic panel Stacy clarke DO Work Phone: Start: 01-03-2025 Troponin I.cardiac p rafaela - Serum or Plasma by High sensitivity method Stacy Billingsley DO Work Phone: Start: 01-03-2025 Radiologic exam ches t single view Stacy Billingsley DO Work Phone: Start: 03-24-2024 Ct head/brain w/o co ntrast material Jose G Orellana MD Work Phone: Start: 10-09-2023 Follow-up visit Follow-up BERTHA KHALIL JR Start: 04-16-2023 Doppler ultrasound of scrotum Start: 02-10-2023 12 lead ECG Plan of Treatment Date Care Activity Detail Author Start: 2078 RSV Immunization for Adults (1 - 1-dose 75+ series) RSV Immunization for Adults (1 - 1-dose 75+ series) [facility] Start: 2063 RSV Immunization age d 60 or older (1 - 1-dose 60+ series) RSV Immunization aged 60 or older (1 - 1-dose 60+ series) [facility] Start: 2053 Zoster Vaccines (1 of 2) Zoster Vacc polo (1 of 2) [facility] Start: 02-10-2033 DTaP/Tdap/Td Vaccine s (2 - Td or Tdap) DTaP/Tdap/Td Vaccines (2 - Td or Tdap) [facility] Start: 06-27-2025 End: 06-27-2025 Patient encounter procedure 06/27/2025 10:00 AM EST Office Visit [facility] [address] [place] [address] [address] [place] [phone] Justice Bass MD [address] [facility] [address] [place] [address] [facility] Start: 02-27-2025 Influenza vaccination Influenza Vacc ine (#1) [facility] Start: 02-09-2025 End: 02-09-2025 Professional / ancillary services management 02/09/2025 3:00 PM EDT Ancillary Procedure [facility] [address] [facility] [address] [place] [address] [facility] Start: 02-08-2025 End: 02-08-2027 Holter monitor study Holter Or Event [employer] [facility] Routine Palpitations Tachycardia, unspecified Expected: 02/08/2025 (Approximate), Expires: 02/08/2027 [facility] Service Area Work Phone: Comment on above: Expected: 02/08/2025 (Approximate), Expires: 02/08/2027 Start: 11-19-2024 Adult BMI Screening Adult BMI Screen ing [facility] Start: 11-19-2024 Tobacco Screening Tobacco Screening [facility] Start: 10-08-2024 Adult BMI Screening Adult BMI Screen ing [facility] Start: 10-08-2024 Tobacco Screening Tobacco Screening [facility] Start: 09-03-2024 Adult BMI Screening Adult BMI Screen ing [facility] Start: 09-03-2024 Tobacco Screening Tobacco Screening [facility] Start: 02-28-2024 COVID-19 Vaccine ( season) COVID-19 Vaccine ( season) [facility] Start: 02-28-2024 COVID-19 Vaccine ( season) COVID-19 Vaccine ( season) [facility] Start: 02-28-2024 Influenza vaccination [facility] Start: 01-22-2024 End: 01-22-2024 Patient encounter procedure 01/22/2024 9:30 AM EDT Office Visit [facility] [address] [place] [address] [place] [phone] Bertha Khalil Jr., MD [address] [place] [id number] [facility] Start: 01-20-2024 End: 11-19-2024 XR Abdomen AP X-ray abdomen ap 1 view Imaging Routine Right kidney stone Expected: 01/20/2024 (Approximate), Expires: 11/19/2024 [facility] Work Phone: Comment on above: Expected: 01/20/2024 (Approximate), Expires: 11/19/2024 Start: 11-20-2023 End: 11-20-2023 Patient encounter procedure 11/20/2023 8:45 AM EDT Office Visit [facility] [address] [place] [phone] Bertha Khalil Jr., MD [address] [place] [id number] [facility] Start: 10-09-2023 End: 10-08-2024 CT Abdomen and Pelvis WO contrast CT abdomen and pelvis without contrast Imaging Routine Left testicular pain Right kidney stone Expected: 10/09/2023, Expires: 10/08/2024 [facility] Work Phone: Comment on above: Expected: 10/09/2023 , Expires: 10/08/2024 Start: 10-09-2023 End: 10-09-2023 Patient encounter procedure 10/09/2023 8:30 AM EDT Office Visit [facility] [address] [place] [address] [place] [address] Bertha Khalil Jr., MD [address] [place] [id number] [facility] Start: 09-04-2023 End: 09-03-2024 US Retroperitoneum Ultrasound retroperitoneal complete Imaging Routine Other microscopic hematuria Expected: 09/04/2023, Expires: 09/03/2024 [facility] Work Phone: Comment on above: Expected: 09/04/2023 , Expires: 09/03/2024 Start: 09-04-2023 End: 09-03-2024 US.doppler Scrotum and testicle Ultrasound scrotum for TORSION with duplex Imaging Routine Other microscopic hematuria Expected: 09/04/2023, Expires: 09/03/2024 [facility] Comment on above: Expected: 09/04/2023 , Expires: 09/03/2024 Start: 03-10-2023 DTaP/Tdap/Td Vaccine s (2 - Td or Tdap) DTaP/Tdap/Td Vaccines (2 - Td or Tdap) [facility] Start: 02-27-2023 COVID-19 Vaccine ( - 2022- season) COVID-19 Vaccine ( - 2022- season) [facility] Start: 02-27-2023 Influenza vaccination Influenza Vacc ine [facility] Start: 2022 DTaP/Tdap/Td Vaccine s (1 - Tdap) DTaP/Tdap/Td Vaccines (1 - Tdap) [facility] Start: 2022 Hepatitis B Vaccines (1 of 3 - 19+ 3-dose series) Hepatitis B Vaccines (1 of 3 - 19+ 3-dose series) [facility] Start: 2021 Hepatitis C screening Hepatitis C Sc reening [facility] Start: 2019 Meningococcal B Vacc ine (1 of 2 - Standard) Meningococcal B Vaccine (1 of 2 - Standard) [facility] Start: 2018 HPV Vaccines (1 - Ma le 3-dose series) HPV Vaccines (1 - Male 3-dose series) [facility] Start: 2016 Varicella vaccination Varicell a Vaccines (1 of 2 - 13+ 2-dose series) [facility] Start: 2015 Depression Screening Depression Scre ening [facility] Start: 2014 DTaP,Tdap and Td Vac cines (5 - Tdap) DTaP,Tdap and Td Vaccines (5 - Tdap) [facility] Start: 2010 DTaP/Tdap/Td Vaccine s (1 - Tdap) DTaP/Tdap/Td Vaccines (1 - Tdap) [facility] Start: 2007 Hearing Screening (#1) Hearing Scree cherie (#1) [facility] Start: 2004 MMR Vaccines (1 of 1 - Standard series) MMR Vaccines (1 of 1 - Standard series) [facility] Start: 2003 HIV screening HIV Screening [facility] Start: 2003 Lipid panel Lipid Panel [facility] Start: 2003 Yearly Adult Physical Yearly Adult P hycal [facility] Patient Education Chemical Skin Burn (ED) [facility] Work Phone: Patient referral [facility] Work Phone: End: 01-03-2025 Pulse oximetry, continuous Pulse oximetry, continuous Respiratory Care STAT Continuous until discontinued starting 01/03/2025 [facility] Work Phone: Comment on above: Continuous until dis continued starting 01/03/2025 Immunizations Immunization Date Immunization Notes Care Provider Fa [facility] 02-10-2023 tetanus toxoid, redu alen diphtheria toxoid, and acellular pertussis vaccine, adsorbed [facility] 05-02-2021 influenza virus vaccine, unspecified formulation Bertha Khalil Jr., MD Work Phone: [facility] Payers Date Payer Category Payer Self-pay 2022 Commercial Managed Care - HMO [employer] OPT [id number] 2022 Managed Care (Private) [id number] [id number] 2022 Private Health Insurance [id number] 2022 Private Health Insurance [id number] 2022 Unknown 2003 Unknown [id number] 2.16.840.1.469852.3.579. 2.902 2003 Unknown [id number] 2.16.840.1.090560.3.579. 2.593 2003 Unknown [id number] 2.16.840.1.748730.3.579. 2.593 2003 Unknown [id number] 2.16.840.1.737823.3.579. 2.593 2003 Unknown [id number] 2.16.840.1.994726.3.579. 2.1286 2003 Unknown [id number] 2.16.840.1.686898.3.579. 2.1286 2003 Unknown [id number] 2.16.840.1.354878.3.579. 2.1286 2003 Unknown [id number] 2.16.840.1.763015.3.579. 2.1286 2003 Unknown [id number] 2.16.840.1.185701.3.579. 2.1286 2003 Unknown [id number] 2.16.840.1.408632.3.579. 2.1286 2003 Unknown [id number] 2.16.840.1.553530.3.579. 2.1286 2003 Unknown [id number] 2.16.840.1.250761.3.579. 2.1243 2003 Unknown [id number] 2.16.840.1.810570.3.579. 2.1244 2003 Unknown [id number] 2.16.840.1.727521.3.579. 2.1244 1964 Unknown [id number] 2.16.840.1.986236.3.579. 2.593 1964 Unknown [id number] 2.16.840.1.805837.3.579. 2.593 1961 Unknown [id number] 2.16.840.1.976588.3.579. 2.727 1961 Unknown [id number] 2.16.840.1.859505.3.579. 2.727 1959 Unknown [id number] 2.16.840.1.500051.19 1959 Unknown [id number] 2.16.840.1.572581.19 Private Health Insurance [facility] [id number] Unknown [id number] Unknown [id number] 2.16.840.1.940233.3.579. 2.531 Unknown [id number] 2.16.840.1.721449.3.579. 2.1271 Unknown [id number] 2.16.840.1.812088.3.579. 2.1271 Social History Date Type Detail Facility Unknown if ever smoked [employer] Other Start: 03-24-2024 End: 02-08-2025 Sex Assigned At [facility] [employer] Other Start: 02-11-2023 Tobacco smoking stat us NHIS Unknown if ever smoked [facility] Work Phone: Start: 2003 Sex Assigned At Male [facility] Work Phone: Start: 03-24-2024 End: 01-03-2025 Tobacco smoking status NHIS Never smoked tobacco [facility] Start: 03-24-2024 End: 01-03-2025 Tobacco use and exposure Smokeless tobacco non-user [facility] Start: 2003 Sex assigned at Not on file P [facility] Start: 03-24-2024 End: 02-08-2025 History of Social function [facility] How often to you hav e a drink containing alcohol? Never [facility] Start: 05-23-2022 How many standard drinks containing alcohol do you have on a typical day? Patient does not drink [facility] Start: 09-04-2023 End: 02-08-2025 Alcohol intake Lifetime non-drinker (finding) [facility] Start: 03-24-2024 Sex Male (finding) [facility] Start: 01-03-2025 Alcoholic beverage intake Ex-drinker (finding) [facility] Work Phone: Functional Status Date Assessment Result Facility 01-03-2025 [place] - suicide s everity rating scale screener - recent [C-SSRS] [facility] Work Phone: Clinical Notes 11-24-2021 to 02-08-2025 Justice Bass MD - 02/08/2025 10:40 AM EDTPatiannamaria Billingsley DO - 01/03/2025 7:30 AM Kirsten Billingsley DO - 01/03/2025 7:30 AM EDTDis[place]pey[place] InstructionsAttachments Note Date & Type Note Facility 02-08-2025 History of Presen t illness Narrative Cardiology Consultation- New Consult Reason for referral: Palpitations, dilated coronary sinus on echocardiogram Chief Complaint Patient presents with New Patient Visit Persistent left superior vena cava, palps, review echo HPI: Abhi Matos is a 19 y.o. male who was referred to me for cardiac evaluation secondary to symptoms of palpitations that have been present for a number of years with recent increase in frequency and recent event where he had very rapid heart rate lasting for 30 minutes and resolved spontaneously. No previous syncope or presyncope. Patient more than 5 years ago had blunt chest trauma to the sternum after which she had an event monitor for arrhythmias which was negative. He has no family history of congenital heart disease. 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 His EKG revealed normal sinus rhythm and normal findings. He currently takes no medications, does not smoke or drink no drug abuse history. Examination was normal Assessment/recommendations: 1-symptoms of palpitations with tachycardia lasting for nearly 30 minutes raising concern for PSVT. 30-day event monitor is scheduled. 2-abnormal echocardiogram showing enlargement of the coronary sinus raising possibility of persistent left superior vena cava which is generally speaking a benign condition and does not require specific therapy. Past Medical History: He has no past medical history on file. Surgical History: He has no past surgical history on file. Family History: Family History[1] Social History: Social History Tobacco Use Smoking status: Never Smokeless tobacco: Never Substance Use Topics Alcohol use: Never Allergies: Patient has no known allergies. Current Medications: Current Outpatient Medications Medication Instructions meloxicam (MOBIC) 15 mg, oral, Daily Vitals: Vitals: 02/08/25 1054 02/08/25 1058 BP: 122/64 124/68 BP Location: Right arm Left arm Patient Position: Sitting Sitting Pulse: 70 Weight: 59.9 kg (132 lb) Height: 1.702 m (5' 7) EKG done in office today ROS Objective Physical Exam Constitutional: Appearance: Normal appearance. HENT: Nose: Nose normal. Neck: Vascular: No carotid bruit. Cardiovascular: Rate and Rhythm: Normal rate. Pulses: Normal pulses. Heart sounds: Normal heart sounds. Pulmonary: Effort: Pulmonary effort is normal. Abdominal: General: Bowel sounds are normal. Palpations: Abdomen is soft. Musculoskeletal: General: Normal range of motion. Cervical back: Normal range of motion. Right lower leg: No edema. Left lower leg: No edema. Skin: General: Skin is warm and dry. Neurological: General: No focal deficit present. Mental Status: He is alert. Psychiatric: Mood and Affect: Mood normal. Behavior: Behavior normal. Thought Content: Thought content normal. Judgment: Judgment normal. Assessment and Plan: 1. Palpitations ECG 12 Lead Follow Up In Cardiology Holter Or Event [employer] 2. Tachycardia, unspecified ECG 12 Lead Holter Or Event [employer] 3. BMI 20.0-20.9, adult 4. Never smoked tobacco Scribe Attestation By signing my name below, I, Karolina Evans LPN , Sunitha attest that this documentation has been prepared under the direction and in the presence of Justice Bass MD. Provider Attestation - Scribe documentation All medical record entries made by the Scribe were at my direction and personally dictated by me. I have reviewed the chart and agree that the record accurately reflects my personal performance of the history, physical exam, discussion and plan. [1] Family History Problem Relation Name Age of Onset No Known Problems Mother Seizures Father documented in this encounter [facility] Work Phone: 02-08-2025 Instructions Karolina Busch LPN - 02/08/2025 10:40 AM EDT Please bring all medicines, vitamins, and herbal supplements with you when you come to the office. Prescriptions will not be filled unless you are compliant with your follow up appointments or have a follow up appointment scheduled as per instruction of your physician. Refills should be requested at the time of your visit. documented in this encounter [facility] Work Phone: 01-03-2025 Physician Emergency department Note HPI Chief Complaint Patient presents with Neck Pain Neck pain s/p injury Thursday. Removed door from [facility] and it fell onto his head/neck. Was seen Thursday at [facility] who prescribed Zanaflex. Pt reports they did not image him. Pt reports driving to work today and wasn't able to move his neck so he pulled over and called 911. 39-year-old male presenting with head and neck pain. He states that on Thursday he was working around his house in a door that was taken off of his kids room was sitting at the wall which fell and struck him in the head and neck. He states initially he did not have any pain at night but woke up the next morning with severe pain in the neck. Denies any numbness or tingling. Denies LOC. Not anticoagulation. He states the next day he was seen at [facility] and no imaging was done. He was sent home on Zanaflex but states the pain is still present. He describes it as 7/10 of pain. Patient states that he started to experience pain this morning and started getting chest pressure and having palpitations. Denies any cardiac history other than a history of palpitations. Currently his symptoms are improving. Patient History Medical History[1] Surgical History[2] Family History[3] Social History[4] Physical Exam ED Triage Vitals [01/03/25 0726] Temperature Heart Rate Respirations BP 36.6 C (97.8 F) 78 18 133/76 Pulse Ox Temp src Heart Rate Source Patient Position 100 % -- -- -- BP Location FiO2 (%) -- -- Physical Exam Vitals and nursing note reviewed. Constitutional: Appearance: Normal appearance. HENT: Head: Normocephalic and atraumatic. Mouth/Throat: Mouth: Mucous membranes are moist. Eyes: Extraocular Movements: Extraocular movements intact. Pupils: Pupils are equal, round, and reactive to light. Neck: Trachea: Trachea normal. Cardiovascular: Rate and Rhythm: Normal rate and regular rhythm. Pulses: Normal pulses. Pulmonary: Effort: Pulmonary effort is normal. Breath sounds: Normal breath sounds. Musculoskeletal: Cervical back: No crepitus. Muscular tenderness present. Decreased range of motion. Skin: General: Skin is warm and dry. Neurological: General: No focal deficit present. Mental Status: He is alert and oriented to person, place, and time. Psychiatric: Mood and Affect: Mood normal. ED Course & MDM Diagnoses as of 01/03/25 0920 Chest pain, unspecified type Neck pain No data recorded Dewey Coma Scale Score: 15 (01/03/25 0728 : Abhi Mora RN) Medical Decision Making Patient presenting with initial complaint of head and neck pain after traumatic injury with the door falling onto his head and neck on Thursday. He states the pain is still present even with Zanaflex. Patient also complains of chest pressure this morning without any significant cardiac history. Differential includes but is not limited to ACS, anxiety, pneumonia, costochondritis, dehydration, anemia, electrolyte abnormalities, cervical strain, C-spine fracture, cranial hemorrhage. CBC will be obtained to assess white blood cell count, hemoglobin and platelet. CMP to assess liver function, renal function, electrolytes, glucose. High-sensitivity troponin and EKG to assess for ischemia/dysrhythmia. Chest x-ray will be obtained as per report. CT brain and cervical spine to be obtained. Patient medicated with morphine and Zofran. EKG interpreted by myself shows a sinus rhythm at 69 bpm without evidence of ischemic change. Chest x-ray interpreted by myself shows no acute cardiopulmonary process. Radiology interprets and agrees. High-sensitivity troponin and delta troponin normal at 3 therefore there is no significant interval change. CBC and CMP unremarkable. Magnesium level within normal limits. CT of the head and cervical spine are both negative for acute findings. Counseled patient from a cardiac standpoint he is low risk and could follow-up outpatient with his PCP in addition to his we discussed his neck pain and I recommended ibuprofen, ice, follow-up with PCP as well. Return precautions were discussed. Patient discharged home in stable condition. Procedure Procedures [1] History reviewed. No pertinent past medical history. [2] History reviewed. No pertinent surgical history. [3] No family history on file. [4] Social History Tobacco Use Smoking status: Never Smokeless tobacco: Never Substance Use Topics Alcohol use: Not Currently Drug use: Never Stacy Billingsley DO 01/03/25 0921 [facility] Work Phone: 01-03-2025 Emergency department Note HPI Chief Complaint Patient presents with Neck Pain Neck pain s/p injury Thursday. Removed door from [facility] and it fell onto his head/neck. Was seen Thursday at [facility] who prescribed Zanaflex. Pt reports they did not image him. Pt reports driving to work today and wasn't able to move his neck so he pulled over and called 911. 39-year-old male presenting with head and neck pain. He states that on Thursday he was working around his house in a door that was taken off of his kids room was sitting at the wall which fell and struck him in the head and neck. He states initially he did not have any pain at night but woke up the next morning with severe pain in the neck. Denies any numbness or tingling. Denies LOC. Not anticoagulation. He states the next day he was seen at [facility] and no imaging was done. He was sent home on Zanaflex but states the pain is still present. He describes it as 7/10 of pain. Patient states that he started to experience pain this morning and started getting chest pressure and having palpitations. Denies any cardiac history other than a history of palpitations. Currently his symptoms are improving. Patient History Medical History[1] Surgical History[2] Family History[3] Social History[4] Physical Exam ED Triage Vitals [01/03/25 0726] Temperature Heart Rate Respirations BP 36.6 C (97.8 F) 78 18 133/76 Pulse Ox Temp src Heart Rate Source Patient Position 100 % -- -- -- BP Location FiO2 (%) -- -- Physical Exam Vitals and nursing note reviewed. Constitutional: Appearance: Normal appearance. HENT: Head: Normocephalic and atraumatic. Mouth/Throat: Mouth: Mucous membranes are moist. Eyes: Extraocular Movements: Extraocular movements intact. Pupils: Pupils are equal, round, and reactive to light. Neck: Trachea: Trachea normal. Cardiovascular: Rate and Rhythm: Normal rate and regular rhythm. Pulses: Normal pulses. Pulmonary: Effort: Pulmonary effort is normal. Breath sounds: Normal breath sounds. Musculoskeletal: Cervical back: No crepitus. Muscular tenderness present. Decreased range of motion. Skin: General: Skin is warm and dry. Neurological: General: No focal deficit present. Mental Status: He is alert and oriented to person, place, and time. Psychiatric: Mood and Affect: Mood normal. ED Course & MDM Diagnoses as of 01/03/25 0920 Chest pain, unspecified type Neck pain No data recorded Dewey Coma Scale Score: 15 (01/03/25 0728 : Abhi Mora RN) Medical Decision Making Patient presenting with initial complaint of head and neck pain after traumatic injury with the door falling onto his head and neck on Thursday. He states the pain is still present even with Zanaflex. Patient also complains of chest pressure this morning without any significant cardiac history. Differential includes but is not limited to ACS, anxiety, pneumonia, costochondritis, dehydration, anemia, electrolyte abnormalities, cervical strain, C-spine fracture, cranial hemorrhage. CBC will be obtained to assess white blood cell count, hemoglobin and platelet. CMP to assess liver function, renal function, electrolytes, glucose. High-sensitivity troponin and EKG to assess for ischemia/dysrhythmia. Chest x-ray will be obtained as per report. CT brain and cervical spine to be obtained. Patient medicated with morphine and Zofran. EKG interpreted by myself shows a sinus rhythm at 69 bpm without evidence of ischemic change. Chest x-ray interpreted by myself shows no acute cardiopulmonary process. Radiology interprets and agrees. High-sensitivity troponin and delta troponin normal at 3 therefore there is no significant interval change. CBC and CMP unremarkable. Magnesium level within normal limits. CT of the head and cervical spine are both negative for acute findings. Counseled patient from a cardiac standpoint he is low risk and could follow-up outpatient with his PCP in addition to his we discussed his neck pain and I recommended ibuprofen, ice, follow-up with PCP as well. Return precautions were discussed. Patient discharged home in stable condition. Procedure Procedures [1] History reviewed. No pertinent past medical history. [2] History reviewed. No pertinent surgical history. [3] No family history on file. [4] Social History Tobacco Use Smoking status: Never Smokeless tobacco: Never Substance Use Topics Alcohol use: Not Currently Drug use: Never Stacy Billingsley DO 01/03/25 0921 documented in this encounter [facility] Work Phone: 01-02-2025 Hospital Discharg e instructions Stephania Gore MD - 01/02/2025 12:26 AM EDT Take extra strength Tylenol every 6 hours for 2 days Take ibuprofen every 6 hours as needed for pain The following attachments cannot be sent through Care Everywhere.Neck Pain Exercises (Macanese)documented in this encounter [facility] 01-01-2025 Emergency department Note EMERGENCY DEPARTMENT ENCOUNTER Pt Name: Abhi Matos Birthdate 2005 Date of evaluation: 01/01/2025 CHIEF COMPLAINT Chief Complaint Patient presents with Neck Pain No injury HISTORY OF PRESENT ILLNESS HPI Abhi Matos is a 19 y.o. male who presents to the emergency department with neck pain, he woke up with symptoms 2 days ago. He has decreased range of motion of the neck. No fever no numbness no weakness of the extremities, no bowel incontinence or bladder incontinence. No injury. He has tried Biofreeze. [id number] medication. He would like a work note. REVIEW OF SYSTEMS Review of Systems No past medical history on file. CURRENT MEDICATIONS Previous Medications CYCLOBENZAPRINE (FLEXERIL) 10 MG TABLET Take 1 tablet (10 mg) by mouth 3 times daily as needed for muscle spasms for up to 4 days. DEXAMETHASONE (DECADRON) 4 MG TABLET Take 1 tablet (4 mg) by mouth daily (with breakfast) for 7 days. ALLERGIES Patient has no known allergies. SOCIAL HISTORY Social History Socioeconomic History Marital status: Single Spouse name: Not on file Number of children: Not on file Years of education: Not on file Highest education level: Not on file Occupational History Not on file Tobacco Use Smoking status: Never Smokeless tobacco: Never Substance and Sexual Activity Alcohol use: Not on file Drug use: Not on file Sexual activity: Not on file Other Topics Concern Not on file Social History Narrative Not on file Social Drivers of Health Financial Resource Strain: Not on file Food Insecurity: No Food Insecurity (11/20/2023) Received from [facility] Hunger Screening Within the past 12 months we worried whether our food would run out before we got money to buy more.: Never True Within the past 12 months the food we bought just didn't last and we didn't have money to get more.: Never True Transportation Needs: Not on file Physical Activity: Not on file Stress: Not on file Social Connections: Not on file Intimate Partner Violence: Not on file Housing Stability: Not on file PHYSICAL EXAM Vitals: 01/01/25 2349 BP: 129/61 BP Location: Right arm Patient Position: Sitting Pulse: 70 Resp: 16 Temp: 36.8 C (98.3 F) SpO2: 100% Physical Exam Vitals and nursing note reviewed. Constitutional: Appearance: He is not toxic-appearing. Musculoskeletal: Cervical back: Tenderness present. Muscular tenderness present. Decreased range of motion. Skin: General: Skin is warm. Coloration: Skin is not jaundiced. Neurological: Mental Status: He is alert. Sensory: Sensation is intact. Motor: Motor function is intact. Gait: Gait is intact. Deep Tendon Reflexes: Reflexes are normal and symmetric. Psychiatric: Behavior: Behavior normal. Thought Content: Thought content normal. SCREENINGS Luther Coma Scale Best Eye Response: Spontaneous Best Verbal Response: Oriented Best Motor Response: Follows commands Dewey Coma Scale Score: 15 Medical decision making DIAGNOSTIC RESULTS Procedures/EKG: Physician EKG interpretation can be found in [facility] if done Radiologist results reviewed: No orders to display LABS: Labs Reviewed - No data to display RADIOLOGY : Medications ordered: Medications traMADol (Ultram) tablet 50 mg (50 mg Oral Given 01/02/25 0030) Diagnoses as of 01/02/25 0032 Neck pain * No order type specified * Our workup consisted of ordering/reviewing: No orders of the defined types were placed in this encounter. MDM: 19 y.o. presented with neck pain. The differential diagnosis considered: Muscle spasm, myofascial pain. Diagnostic tests considered but not performed: C-spine x-ray. Clinically no fracture no subluxation. Consideration for escalation of care with: diagnostics esr, clinically not septic hence not ordered unlikely, epidural abscess.. Prescription medications considered but not prescribed: oxycodone po. Will trial alternative to opiates. . REVAL: CRITICAL CARE TIME PROCEDURES: Procedures FINAL IMPRESSION 1. Neck pain DISPOSITION/PLAN DISPOSITION Discharge 01/02/2025 12:25:31 AM PATIENT REFERRED TO: Your primary care doctor In 5 days I prescribed: New Prescriptions TIZANIDINE (ZANAFLEX) 2 MG TABLET Take 1 tablet (2 mg) by mouth Daily as needed for muscle spasms. (Comment: this report has been produced using speech recognition software and may contain errors related to that system including errors in grammar, punctuation, and spelling, as well as words and phrases) Stephania Gore MD (electronically signed) Stephania Gore MD 01/02/25 0032 documented in this encounter [facility] 01-01-2025 Physician Emergency department Note EMERGENCY DEPARTMENT ENCOUNTER Pt Name: Abhi Matos Birthdate 2005 Date of evaluation: 01/01/2025 CHIEF COMPLAINT Chief Complaint Patient presents with Neck Pain No injury HISTORY OF PRESENT ILLNESS HPI Abhi Matos is a 19 y.o. male who presents to the emergency department with neck pain, he woke up with symptoms 2 days ago. He has decreased range of motion of the neck. No fever no numbness no weakness of the extremities, no bowel incontinence or bladder incontinence. No injury. He has tried Biofreeze. [id number]-wyv-[id number] medication. He would like a work note. REVIEW OF SYSTEMS Review of Systems No past medical history on file. CURRENT MEDICATIONS Previous Medications CYCLOBENZAPRINE (FLEXERIL) 10 MG TABLET Take 1 tablet (10 mg) by mouth 3 times daily as needed for muscle spasms for up to 4 days. DEXAMETHASONE (DECADRON) 4 MG TABLET Take 1 tablet (4 mg) by mouth daily (with breakfast) for 7 days. ALLERGIES Patient has no known allergies. SOCIAL HISTORY Social History Socioeconomic History Marital status: Single Spouse name: Not on file Number of children: Not on file Years of education: Not on file Highest education level: Not on file Occupational History Not on file Tobacco Use Smoking status: Never Smokeless tobacco: Never Substance and Sexual Activity Alcohol use: Not on file Drug use: Not on file Sexual activity: Not on file Other Topics Concern Not on file Social History Narrative Not on file Social Drivers of Health Financial Resource Strain: Not on file Food Insecurity: No Food Insecurity (11/20/2023) Received from [facility] Hunger Screening Within the past 12 months we worried whether our food would run out before we got money to buy more.: Never True Within the past 12 months the food we bought just didn't last and we didn't have money to get more.: Never True Transportation Needs: Not on file Physical Activity: Not on file Stress: Not on file Social Connections: Not on file Intimate Partner Violence: Not on file Housing Stability: Not on file PHYSICAL EXAM Vitals: 01/01/25 2349 BP: 129/61 BP Location: Right arm Patient Position: Sitting Pulse: 70 Resp: 16 Temp: 36.8 C (98.3 F) SpO2: 100% Physical Exam Vitals and nursing note reviewed. Constitutional: Appearance: He is not toxic-appearing. Musculoskeletal: Cervical back: Tenderness present. Muscular tenderness present. Decreased range of motion. Skin: General: Skin is warm. Coloration: Skin is not jaundiced. Neurological: Mental Status: He is alert. Sensory: Sensation is intact. Motor: Motor function is intact. Gait: Gait is intact. Deep Tendon Reflexes: Reflexes are normal and symmetric. Psychiatric: Behavior: Behavior normal. Thought Content: Thought content normal. SCREENINGS Dewey Coma Scale Best Eye Response: Spontaneous Best Verbal Response: Oriented Best Motor Response: Follows commands Luther Coma Scale Score: 15 Medical decision making DIAGNOSTIC RESULTS Procedures/EKG: Physician EKG interpretation can be found in [facility] if done Radiologist results reviewed: No orders to display LABS: Labs Reviewed - No data to display RADIOLOGY : Medications ordered: Medications traMADol (Ultram) tablet 50 mg (50 mg Oral Given 01/02/25 0030) Diagnoses as of 01/02/25 0032 Neck pain * No order type specified * Our workup consisted of ordering/reviewing: No orders of the defined types were placed in this encounter. MDM: 19 y.o. presented with neck pain. The differential diagnosis considered: Muscle spasm, myofascial pain. Diagnostic tests considered but not performed: C-spine x-ray. Clinically no fracture no subluxation. Consideration for escalation of care with: diagnostics esr, clinically not septic hence not ordered unlikely, epidural abscess.. Prescription medications considered but not prescribed: oxycodone po. Will trial alternative to opiates. . REVAL: CRITICAL CARE TIME PROCEDURES: Procedures FINAL IMPRESSION 1. Neck pain DISPOSITION/PLAN DISPOSITION Discharge 01/02/2025 12:25:31 AM PATIENT REFERRED TO: Your primary care doctor In 5 days I prescribed: New Prescriptions TIZANIDINE (ZANAFLEX) 2 MG TABLET Take 1 tablet (2 mg) by mouth Daily as needed for muscle spasms. (Comment: this report has been produced using speech recognition software and may contain errors related to that system including errors in grammar, punctuation, and spelling, as well as words and phrases) Stephania Gore MD (electronically signed) Stephania Gore MD 01/02/25 0032 [facility] 03-28-2024 Emergency department Note EMERGENCY DEPARTMENT ENCOUNTER Pt Name: Abhi Matos Birthdate 2005 Date of evaluation: 03/28/2024 CHIEF COMPLAINT Chief Complaint Patient presents with Headache Pt reports headache since last Thursday. Came to ED on and received a ct scan/headache cocktail and left ED with no relief of headache. Pt reports he took motrin last night for CARPENTER without relief but has not kept up on pain medications. Pt denies HX of migraines, took covid test at home that was negative. HISTORY OF PRESENT ILLNESS HPI Abhi Matos is a 18 y.o. male who presents to the emergency department with headache. Was seen before had a CAT scan done. Home COVID test was negative. He has been trying ibuprofen without significant relief. Normal vision no double vision no focal weakness no numbness no loss of consciousness. Headache started approximately 7 days ago. Pain in the neck. Some photophobia. Denies nausea, denies vomiting to me. No fever. Headache started gradually. REVIEW OF SYSTEMS Review of Systems There is no problem list on file for this patient. CURRENT MEDICATIONS Previous Medications CYCLOBENZAPRINE (FLEXERIL) 10 MG TABLET Take 1 tablet (10 mg) by mouth 3 times daily as needed for muscle spasms for up to 4 days. IBUPROFEN 800 MG TABLET Take 1 tablet (800 mg) by mouth every 8 hours as needed for mild pain (1-3) for up to 7 days. ALLERGIES Patient has no known allergies. SOCIAL HISTORY Social History Tobacco Use Smoking status: Never Smokeless tobacco: Never Social Determinants of Health Tobacco Use: Low Risk (03/28/2024) Patient History Smoking Tobacco Use: Never Smokeless Tobacco Use: Never Passive Exposure: Not on file Alcohol Use: Not At Risk (03/28/2024) AUDIT-C Frequency of Alcohol Consumption: Never Average Number of Drinks: Patient does not drink Frequency of Binge Drinking: Never Financial Resource Strain: Not on file Food Insecurity: No Food Insecurity (11/20/2023) Received from [facility] Hunger Screening Within the past 12 months we worried whether our food would run out before we got money to buy more.: Never True Within the past 12 months the food we bought just didn't last and we didn't have money to get more.: Never True Transportation Needs: Not on file Physical Activity: Not on file Stress: Not on file Social Connections: Not on file Intimate Partner Violence: Not on file Depression: Not on file Housing Stability: Not on file Utilities: Not on file Health Literacy: Not on file PHYSICAL EXAM Vitals: 03/28/24 1833 03/28/24 1841 BP: 132/64 Pulse: 82 Resp: 16 Temp: 36.7 C (98 F) TempSrc: Oral SpO2: 100% 100% Weight: 56.7 kg (125 lb) Height: 1.702 m (5' 7) Physical Exam Vitals and nursing note reviewed. Constitutional: Appearance: He is underweight. HENT: Head: Atraumatic. Eyes: Extraocular Movements: Extraocular movements intact. Conjunctiva/sclera: Conjunctivae normal. Pupils: Pupils are equal, round, and reactive to light. Funduscopic exam: Right eye: No papilledema. Left eye: No papilledema. Neck: Vascular: No carotid bruit. Pulmonary: Effort: Pulmonary effort is normal. Breath sounds: Normal breath sounds. Musculoskeletal: Cervical back: Normal range of motion. Right lower leg: No swelling or tenderness. Left lower leg: No swelling or tenderness. Skin: General: Skin is warm and dry. Capillary Refill: Capillary refill takes less than 2 seconds. Coloration: Skin is not jaundiced. Neurological: Mental Status: He is alert and oriented to person, place, and time. Cranial Nerves: Cranial nerves 2-12 are intact. Sensory: Sensation is intact. Motor: Motor function is intact. Coordination: Coordination is intact. Gait: Gait is intact. Comments: Nih ss=0 Psychiatric: Mood and Affect: Mood normal. Behavior: Behavior normal. Thought Content: Thought content normal. SCREENINGS Ulther Coma Scale Best Eye Response: Spontaneous Best Verbal Response: Oriented Best Motor Response: Follows commands Luther Coma Scale Score: 15 Medical decision making DIAGNOSTIC RESULTS Procedures/EKG: Physician EKG interpretation can be found in [facility] if done RADIOLOGY : Radiologist results reviewed: No orders to display LABS: Labs Reviewed - No data to display Medications ordered: Medications morphine injection 4 mg ED Course as of 03/28/241854Mar 28, 20241850 CT head wo IV contrast (03/24/24 1525) Prior medical records were reviewed: ct head nad [NM] ED Course User Index [NM] Stephania Gore MD Diagnoses as of 03/28/241854 Headache disorder * No order type specified * Our workup consisted of ordering/reviewing: Orders Placed This Encounter Procedures [facility] Neurology and Sleep [facility] MEDICAL DECISION MAKING: I considered, but did not perform, additional testing such as CT Angiogram or Lumbar Puncture, as well as admission or transfer to a higher level of care. I utilized my training and experience to weigh the risk of discharge against the risks of further testing, imaging, or hospitalization. At this time the risk of SAH is remote and the risk of further testing/imaging or hospitalization is most likely higher than the risk of having SAH. SHARED DECISION MAKING: I discussed my risk assessment with the patient. The patient understands and consents to the risk of disposition/plan, as well as the risk of uncertainty in estimating outcomes. REVAL: CRITICAL CARE TIME PROCEDURES: Procedures FINAL IMPRESSION 1. Headache disorder DISPOSITION/PLAN DISPOSITION Discharge 03/28/2024 06:50:29 PM PATIENT REFERRED TO: [facility] [address] [facility] [id number] [facility] [address] [facility] [id number] I prescribed: New Prescriptions DEXAMETHASONE (DECADRON) 4 MG TABLET Take 1 tablet (4 mg) by mouth daily (with breakfast) for 7 days. (Comment: this report has been produced using speech recognition software and may contain errors related to that system including errors in grammar, punctuation, and spelling, as well as words and phrases that may be inappropriate) Stephania Gore MD (electronically signed) Stephania Gore MD 03/28/24 610 documented in this encounter [facility] 03-28-2024 Physician Emergency department Note EMERGENCY DEPARTMENT ENCOUNTER Pt Name: Abhi Matos Birthdate 2005 Date of evaluation: 03/28/2024 CHIEF COMPLAINT Chief Complaint Patient presents with Headache Pt reports headache since last Thursday. Came to ED on and received a ct scan/headache cocktail and left ED with no relief of headache. Pt reports he took motrin last night for CARPENTER without relief but has not kept up on pain medications. Pt denies HX of migraines, took covid test at home that was negative. HISTORY OF PRESENT ILLNESS HPI Abhi Matos is a 18 y.o. male who presents to the emergency department with headache. Was seen before had a CAT scan done. Home COVID test was negative. He has been trying ibuprofen without significant relief. Normal vision no double vision no focal weakness no numbness no loss of consciousness. Headache started approximately 7 days ago. Pain in the neck. Some photophobia. Denies nausea, denies vomiting to me. No fever. Headache started gradually. REVIEW OF SYSTEMS Review of Systems There is no problem list on file for this patient. CURRENT MEDICATIONS Previous Medications CYCLOBENZAPRINE (FLEXERIL) 10 MG TABLET Take 1 tablet (10 mg) by mouth 3 times daily as needed for muscle spasms for up to 4 days. IBUPROFEN 800 MG TABLET Take 1 tablet (800 mg) by mouth every 8 hours as needed for mild pain (1-3) for up to 7 days. ALLERGIES Patient has no known allergies. SOCIAL HISTORY Social History Tobacco Use Smoking status: Never Smokeless tobacco: Never Social Determinants of Health Tobacco Use: Low Risk (03/28/2024) Patient History Smoking Tobacco Use: Never Smokeless Tobacco Use: Never Passive Exposure: Not on file Alcohol Use: Not At Risk (03/28/2024) AUDIT-C Frequency of Alcohol Consumption: Never Average Number of Drinks: Patient does not drink Frequency of Binge Drinking: Never Financial Resource Strain: Not on file Food Insecurity: No Food Insecurity (11/20/2023) Received from [facility] Hunger Screening Within the past 12 months we worried whether our food would run out before we got money to buy more.: Never True Within the past 12 months the food we bought just didn't last and we didn't have money to get more.: Never True Transportation Needs: Not on file Physical Activity: Not on file Stress: Not on file Social Connections: Not on file Intimate Partner Violence: Not on file Depression: Not on file Housing Stability: Not on file Utilities: Not on file Health Literacy: Not on file PHYSICAL EXAM Vitals: 03/28/24 1833 03/28/24 1841 BP: 132/64 Pulse: 82 Resp: 16 Temp: 36.7 C (98 F) TempSrc: Oral SpO2: 100% 100% Weight: 56.7 kg (125 lb) Height: 1.702 m (5' 7) Physical Exam Vitals and nursing note reviewed. Constitutional: Appearance: He is underweight. HENT: Head: Atraumatic. Eyes: Extraocular Movements: Extraocular movements intact. Conjunctiva/sclera: Conjunctivae normal. Pupils: Pupils are equal, round, and reactive to light. Funduscopic exam: Right eye: No papilledema. Left eye: No papilledema. Neck: Vascular: No carotid bruit. Pulmonary: Effort: Pulmonary effort is normal. Breath sounds: Normal breath sounds. Musculoskeletal: Cervical back: Normal range of motion. Right lower leg: No swelling or tenderness. Left lower leg: No swelling or tenderness. Skin: General: Skin is warm and dry. Capillary Refill: Capillary refill takes less than 2 seconds. Coloration: Skin is not jaundiced. Neurological: Mental Status: He is alert and oriented to person, place, and time. Cranial Nerves: Cranial nerves 2-12 are intact. Sensory: Sensation is intact. Motor: Motor function is intact. Coordination: Coordination is intact. Gait: Gait is intact. Comments: Nih ss=0 Psychiatric: Mood and Affect: Mood normal. Behavior: Behavior normal. Thought Content: Thought content normal. SCREENINGS Dewey Coma Scale Best Eye Response: Spontaneous Best Verbal Response: Oriented Best Motor Response: Follows commands Dewey Coma Scale Score: 15 Medical decision making DIAGNOSTIC RESULTS Procedures/EKG: Physician EKG interpretation can be found in [facility] if done RADIOLOGY : Radiologist results reviewed: No orders to display LABS: Labs Reviewed - No data to display Medications ordered: Medications morphine injection 4 mg ED Course as of 03/28/241854Mar 28, [address] head wo IV contrast (03/24/24 1525) Prior medical records were reviewed: ct head nad [NM] ED Course User Index [NM] Stephania Gore MD Diagnoses as of 03/28/241854 Headache disorder * No order type specified * Our workup consisted of ordering/reviewing: Orders Placed This Encounter Procedures [facility] Neurology and Sleep [facility] MEDICAL DECISION MAKING: I considered, but did not perform, additional testing such as CT Angiogram or Lumbar Puncture, as well as admission or transfer to a higher level of care. I utilized my training and experience to weigh the risk of discharge against the risks of further testing, imaging, or hospitalization. At this time the risk of SAH is remote and the risk of further testing/imaging or hospitalization is most likely higher than the risk of having SAH. SHARED DECISION MAKING: I discussed my risk assessment with the patient. The patient understands and consents to the risk of disposition/plan, as well as the risk of uncertainty in estimating outcomes. REVAL: CRITICAL CARE TIME PROCEDURES: Procedures FINAL IMPRESSION 1. Headache disorder DISPOSITION/PLAN DISPOSITION Discharge 03/28/2024 06:50:29 PM PATIENT REFERRED TO: [facility] [address] [facility] [address] [facility] [address] [facility] [id number] I prescribed: New Prescriptions DEXAMETHASONE (DECADRON) 4 MG TABLET Take 1 tablet (4 mg) by mouth daily (with breakfast) for 7 days. (Comment: this report has been produced using speech recognition software and may contain errors related to that system including errors in grammar, punctuation, and spelling, as well as words and phrases that may be inappropriate) Stephania Gore MD (electronically signed) Stephania Gore MD 03/28/241854 [facility] 03-24-2024 Emergency department Note [facility] ED EMERGENCY DEPARTMENT ENCOUNTER Pt Name: bAhi Matos Birthdate 2005 Date of evaluation: 03/24/2024 Provider: Jose G Orellana MD CHIEF COMPLAINT Chief Complaint Patient presents with Headache X3 days HISTORY OF PRESENT ILLNESS (Location/Symptom, Timing/Onset,Context/Setting, Quality, Duration, Modifying Factors, Severity) Note limiting factors. Abhi Matos is a 18 y.o. male who presents to the emergency department for 3 days. Started 3 days ago. He thought he slept wrong his neck was sore but then is gradual got worse headache now he has diffuse headache photophobia. Some nausea. No history of headaches no trauma. No fevers chills cough cold congestion. No blurry double vision. Acting appropriate otherwise brought in to be seen. He says he is not getting better with [id number]-fgi-[id number] medication. HPI Historian is the patient Nurse's notes for past medical history, surgical history, social history were reviewed. Medications and allergies reviewed. PAST MEDICAL HISTORY History reviewed. No pertinent past medical history. SURGICALHISTORY History reviewed. No pertinent surgical history. CURRENT MEDICATIONS Previous Medications No medications on file Patient has no known allergies. FAMILY HISTORY No family history on file. SOCIAL HISTORY Social History Socioeconomic History Marital status: Single Tobacco Use Smoking status: Never Smokeless tobacco: Never Social Determinants of Health Food Insecurity: No Food Insecurity (11/20/2023) Received from [facility] Hunger Screening Within the past 12 months we worried whether our food would run out before we got money to buy more.: Never True Within the past 12 months the food we bought just didn't last and we didn't have money to get more.: Never True SCREENINGS PHYSICAL EXAM (up to 7 for level 4, 8 or more for level 5) @EDTRIAGEVSS@ Appropriate PPE including n 95, gown, gloves, goggles where worn when appropriate with this patient. Physical Exam Vital signs reviewed general: Alert and oriented 3 head: Atraumatic eyes: Equal round reactive to light and accommodating, pupils are equal, round and reactive to light and accommodation oropharynx: Clear and well hydrated neck: Supple heart: Regular rate and rhythm, no murmurs lungs: Clear to auscultation bilaterally Extremities: Moving all fours, no tenderness. Normal capillary refill. Skin: No rash or lesions -to the exposed skin neurologically: Alert and oriented 3, cranial nerves grossly intact, strength, sensation, reflexes intact. Cerebellar function intact. Gait is steady. NIH equals 0 DIAGNOSTIC RESULTS RADIOLOGY: Interpretation per the Radiologist below, if availableat the time of this note: CT head wo IV contrast Final Result No CT evidence of an acute intracranial abnormality. Report Dictated on Electronically Signed By: Quentin Wilkerson MD Electronically Signed Date/Time: 03/24/2024 3:25 PM EDT ED BEDSIDE ULTRASOUND: Performed by ED Physician - none LABS: Labs Reviewed - No data to display All other labs were within normal range or not returned as of thisdictation. EMERGENCYDEPARTMENT COURSE and DIFFERENTIAL DIAGNOSIS/MDM: Vitals: Vitals: 03/24/24 1429 BP: 136/72 BP Location: Right arm Patient Position: Sitting Pulse: 85 Resp: 18 Temp: 37.1 C (98.7 F) TempSrc: Oral SpO2: 99% Weight: 56.7 kg (125 lb) Height: 1.702 m (5' 7) Medical Decision Making Problems Addressed: Acute nonintractable headache, unspecified headache type: complicated acute illness or injury Tension headache: complicated acute illness or injury Amount and/or Complexity of Data Reviewed Radiology: ordered. Risk Prescription drug management. EMERGENCY DEPARTMENT COURSE and DIFFERENTIAL DIAGNOSIS/MDM: Vitals: Vitals: 03/24/24 1429 BP: 136/72 BP Location: Right arm Patient Position: Sitting Pulse: 85 Resp: 18 Temp: 37.1 C (98.7 F) TempSrc: Oral SpO2: 99% Weight: 56.7 kg (125 lb) Height: 1.702 m (5' 7) The patient presented with a chief complaint of headache. The differential diagnosis associated with this patient's presentation includes tumor mass headache tension headache migraine. Our workup consisted of ordering/reviewing CT of the head. I do not believe subarachnoid hemorrhage or meningitis but he is never had headaches before so I think it is reasonable get a CT of the head to make sure is not a tumor. Likely tension headache if that is negative. Will treat him with 1 L of IV fluids. 10 mg IV Reglan 4 mg IV Zofran and 25 mg IV Benadryl. Medicine did not really help the headache. I think this points more towards that this is a tension headache. Not migraine. I do not believe is meningitis. Not the worst of his life. Do not believe lumbar puncture is needed. Will give him 15 of Toradol IV. Will send him home on a short course of Motrin and Flexeril. Will give him a new family doctor he has a primary care doctor in [place] but now lives here. Return here if any problems or concerns. Patient agrees to plan. Neurologically intact. NIH equals 0. Diagnoses as of 03/24/24 1559 Acute nonintractable headache, unspecified headache type Tension headache Diagnostics considered but not indicated based on history, physical, testing: Blood work however not clinically indicated External records reviewed: No previous visits Radiologic diagnostics interpreted by me: film images such as CT, Ultrasound and MRI are read by the radiologist. Plain radiographic images are visualized and preliminarily interpreted by the emergency physician with the below findings: CT scan(s) CT head negative for acute process per radiology. Discussions with other clinicians: none Chronic conditions impacting care: none Social determinants of health affecting care: none Shared decision making: Patient agrees to treatment plan ED Medications managed: Medications ketorolac (Toradol) injection 15 mg (has no administration in time range) diphenhydrAMINE (BENADryl) injection 25 mg (25 mg IntraVENous Given 03/24/241456) metoclopramide (Reglan) injection 10 mg (10 mg IntraVENous Given 03/24/241456) sodium chloride 0.9 % bolus 1,000 mL (1,000 mL IntraVENous New Bag 03/24/241456) ondansetron (Zofran) injection 4 mg (4 mg IntraVENous Given 03/24/241456) Prescription drugs prescribed: Motrin and Flexeril PROCEDURES: Unless otherwise noted below, none Procedures IMPRESSION 1. Acute nonintractable headache, unspecified headache type 2. Tension headache DISPOSITION/PLAN DISPOSITION Discharge 03/24/2024 03:57:20 PM PATIENT REFERRED TO: [facility] [address] [facility] [address] In 1 week DISCHARGE MEDICATIONS: New Prescriptions CYCLOBENZAPRINE (FLEXERIL) 10 MG TABLET Take 1 tablet (10 mg) by mouth 3 times daily as needed for muscle spasms for up to 4 days. IBUPROFEN 800 MG TABLET Take 1 tablet (800 mg) by mouth every 8 hours as needed for mild pain (1-3) for up to 7 days. @[facility]([id number]:LAST:1) @ (Comment: Please notethis report has been produced using speech recognition software and may contain errors related to that system including errors in grammar, punctuation, and spelling, as well as words and phrases that may be inappropriate.If there is any questions or concerns please feel free to contact the dictating provider for clarification). Jose G Orellana MD (electronically signed) Attending Emergency Physician Jose G Orellana MD 03/24/24 1559 documented in this encounter [facility] 03-24-2024 Physician Emergency department Note [facility] ED EMERGENCY DEPARTMENT ENCOUNTER Pt Name: Abhi Matos Birthdate 2005 Date of evaluation: 03/24/2024 Provider: Jose G Orellana MD CHIEF COMPLAINT Chief Complaint Patient presents with Headache X3 days HISTORY OF PRESENT ILLNESS (Location/Symptom, Timing/Onset,Context/Setting, Quality, Duration, Modifying Factors, Severity) Note limiting factors. Abhi Matos is a 18 y.o. male who presents to the emergency department for 3 days. Started 3 days ago. He thought he slept wrong his neck was sore but then is gradual got worse headache now he has diffuse headache photophobia. Some nausea. No history of headaches no trauma. No fevers chills cough cold congestion. No blurry double vision. Acting appropriate otherwise brought in to be seen. He says he is not getting better with [id number] medication. HPI Historian is the patient Nurse's notes for past medical history, surgical history, social history were reviewed. Medications and allergies reviewed. PAST MEDICAL HISTORY History reviewed. No pertinent past medical history. SURGICALHISTORY History reviewed. No pertinent surgical history. CURRENT MEDICATIONS Previous Medications No medications on file Patient has no known allergies. FAMILY HISTORY No family history on file. SOCIAL HISTORY Social History Socioeconomic History Marital status: Single Tobacco Use Smoking status: Never Smokeless tobacco: Never Social Determinants of Health Food Insecurity: No Food Insecurity (11/20/2023) Received from [facility] Hunger Screening Within the past 12 months we worried whether our food would run out before we got money to buy more.: Never True Within the past 12 months the food we bought just didn't last and we didn't have money to get more.: Never True SCREENINGS PHYSICAL EXAM (up to 7 for level 4, 8 or more for level 5) @EDTRIAGEVSS@ Appropriate PPE including n 95, gown, gloves, goggles where worn when appropriate with this patient. Physical Exam Vital signs reviewed general: Alert and oriented 3 head: Atraumatic eyes: Equal round reactive to light and accommodating, pupils are equal, round and reactive to light and accommodation oropharynx: Clear and well hydrated neck: Supple heart: Regular rate and rhythm, no murmurs lungs: Clear to auscultation bilaterally Extremities: Moving all fours, no tenderness. Normal capillary refill. Skin: No rash or lesions -to the exposed skin neurologically: Alert and oriented 3, cranial nerves grossly intact, strength, sensation, reflexes intact. Cerebellar function intact. Gait is steady. NIH equals 0 DIAGNOSTIC RESULTS RADIOLOGY: Interpretation per the Radiologist below, if availableat the time of this note: CT head wo IV contrast Final Result No CT evidence of an acute intracranial abnormality. Report Dictated on Electronically Signed By: Quentin Wilkerson MD Electronically Signed Date/Time: 03/24/2024 3:25 PM EDT ED BEDSIDE ULTRASOUND: Performed by ED Physician - none LABS: Labs Reviewed - No data to display All other labs were within normal range or not returned as of thisdictation. EMERGENCYDEPARTMENT COURSE and DIFFERENTIAL DIAGNOSIS/MDM: Vitals: Vitals: 03/24/24 1429 BP: 136/72 BP Location: Right arm Patient Position: Sitting Pulse: 85 Resp: 18 Temp: 37.1 C (98.7 F) TempSrc: Oral SpO2: 99% Weight: 56.7 kg (125 lb) Height: 1.702 m (5' 7) Medical Decision Making Problems Addressed: Acute nonintractable headache, unspecified headache type: complicated acute illness or injury Tension headache: complicated acute illness or injury Amount and/or Complexity of Data Reviewed Radiology: ordered. Risk Prescription drug management. EMERGENCY DEPARTMENT COURSE and DIFFERENTIAL DIAGNOSIS/MDM: Vitals: Vitals: 03/24/24 1429 BP: 136/72 BP Location: Right arm Patient Position: Sitting Pulse: 85 Resp: 18 Temp: 37.1 C (98.7 F) TempSrc: Oral SpO2: 99% Weight: 56.7 kg (125 lb) Height: 1.702 m (5' 7) The patient presented with a chief complaint of headache. The differential diagnosis associated with this patient's presentation includes tumor mass headache tension headache migraine. Our workup consisted of ordering/reviewing CT of the head. I do not believe subarachnoid hemorrhage or meningitis but he is never had headaches before so I think it is reasonable get a CT of the head to make sure is not a tumor. Likely tension headache if that is negative. Will treat him with 1 L of IV fluids. 10 mg IV Reglan 4 mg IV Zofran and 25 mg IV Benadryl. Medicine did not really help the headache. I think this points more towards that this is a tension headache. Not migraine. I do not believe is meningitis. Not the worst of his life. Do not believe lumbar puncture is needed. Will give him 15 of Toradol IV. Will send him home on a short course of Motrin and Flexeril. Will give him a new family doctor he has a primary care doctor in [place] but now lives here. Return here if any problems or concerns. Patient agrees to plan. Neurologically intact. NIH equals 0. Diagnoses as of 03/24/24 1559 Acute nonintractable headache, unspecified headache type Tension headache Diagnostics considered but not indicated based on history, physical, testing: Blood work however not clinically indicated External records reviewed: No previous visits Radiologic diagnostics interpreted by me: film images such as CT, Ultrasound and MRI are read by the radiologist. Plain radiographic images are visualized and preliminarily interpreted by the emergency physician with the below findings: CT scan(s) CT head negative for acute process per radiology. Discussions with other clinicians: none Chronic conditions impacting care: none Social determinants of health affecting care: none Shared decision making: Patient agrees to treatment plan ED Medications managed: Medications ketorolac (Toradol) injection 15 mg (has no administration in time range) diphenhydrAMINE (BENADryl) injection 25 mg (25 mg IntraVENous Given 03/24/24 1457) metoclopramide (Reglan) injection 10 mg (10 mg IntraVENous Given 03/24/241456) sodium chloride 0.9 % bolus 1,000 mL (1,000 mL IntraVENous New Bag 03/24/241456) ondansetron (Zofran) injection 4 mg (4 mg IntraVENous Given 03/24/241456) Prescription drugs prescribed: Motrin and Flexeril PROCEDURES: Unless otherwise noted below, none Procedures IMPRESSION 1. Acute nonintractable headache, unspecified headache type 2. Tension headache DISPOSITION/PLAN DISPOSITION Discharge 03/24/2024 03:57:20 PM PATIENT REFERRED TO: [address] [facility] [address] In 1 week DISCHARGE MEDICATIONS: New Prescriptions CYCLOBENZAPRINE (FLEXERIL) 10 MG TABLET Take 1 tablet (10 mg) by mouth 3 times daily as needed for muscle spasms for up to 4 days. IBUPROFEN 800 MG TABLET Take 1 tablet (800 mg) by mouth every 8 hours as needed for mild pain (1-3) for up to 7 days. @[facility]([id number]:LAST:1) @ (Comment: Please notethis report has been produced using speech recognition software and may contain errors related to that system including errors in grammar, punctuation, and spelling, as well as words and phrases that may be inappropriate.If there is any questions or concerns please feel free to contact the dictating provider for clarification). Jose G Orellana MD (electronically signed) Attending Emergency Physician Jose G Orellana MD 03/24/24 4519 [facility] 01-22-2024 History of Presen t illness Narrative Did not keep appointment. I instructed staff to reschedule the patient. documented in this encounter [facility] 01-22-2024 Miscellaneous Notes Did not keep appointment. Reschedule within 3 months documented in this encounter [facility] 01-22-2024 Telephone encounter Note Did not keep appointment. Reschedule within 3 months [facility] 01-18-2024 Miscellaneous Notes Called patient in regards to uncompleted KUB order(11/20/23). LVM to call back if they went somewhere else to get KUB completed. documented in this encounter [facility] 01-18-2024 Telephone encounter Note Called patient in regards to uncompleted KUB order(11/20/23). LVM to call back if they went somewhere else to get KUB completed. [facility] 11-20-2023 History of Presen t illness Narrative Images from the original note were not included. [address] [place] [phone] Patient: Abhi Matos Date of : 2005 Encounter Date: 11/20/2023 History of Present Illness: Chief Complaint: Follow up The patient is a 18 y.o. male, an established patient, and is here for concern for kidney stone and possible varicocele. See below. Urinalysis today: No results for input(s): EXTPOCURCO, EXTPOCURCH, EXTPOCAPP, EXTPOCURBS, EXTPOCURBIL, EXTPOCUKET, EXTPOCUSPG, EXTPOCUHGB, EXTPOCUPRO, EXTPOCUURO, EXTPOCULEU, EXTPOCUNIT, EXTPOCUWBC, EXTPOCUBLD, EXTPOCURBC, EXTPOCUCRY, EXTPOCUBAC, EXTPOCUTREP, EXTPOCUPH, EXTPOCULEE in the last 72 hours. Last BUN and creatinine: No results found for: BUN No results found for: CREATININE Last PSA: No results found for: PSA No results found for: PROSTATICSP Past Medical, Family, and Social History Update: The following portions of the patient's history were reviewed and updated as appropriate: allergies, current medications, past family history, past medical history, past social history, past surgical history and problem list. Past Medical History: Diagnosis Date Hiatal hernia Keloid History reviewed. No pertinent surgical history. History reviewed. No pertinent family history. No current outpatient medications on file. No current facility-administered medications for this visit. (All medications reviewed and updated by provider since last office visit or hospitalization) Allergies: Patient has no known allergies. Tobacco History: Social History Tobacco Use Smoking Status Never Smokeless Tobacco Never (If patient a smoker, smoking cessation counseling offered) Social History: Social History Substance and Sexual Activity Alcohol Use Never Review of Systems: General: Negative for chills and fever. Cardiovascular: Negative for chest pain and shortness of breath. Gastrointestinal: Negative for constipation, diarrhea, nausea, and vomitting. -per HPI Physical Exam: BP 115/61 Pulse 72 Ht 170.2 cm (5' 7) Wt 57.2 kg (126 lb) BMI 19.73 kg/m Alert, pleasant, without signs of acute illness, and in no distress. Respirations unlabored . Skin dry on examination now. Assessment and Plan: Abhi was seen today for follow-up. Diagnoses and all orders for this visit: Left varicocele Left testicular pain Urologic disorders Right kidney stone - X-ray abdomen ap 1 view; Future Other microscopic hematuria Epididymal cyst Problem List Unprioritized Urologic disorders Overview 1. Single without paternity with Left orchalgia, progressive onset estimated February 2023 with left varicocele ultrasound elsewhere 04/16/2023, apparent grade 2-3 exam 09/04/2023, not apparent ultrasound 09/08/2023; semen analysis declined 11/20/2023; grandfather Matthew 2. Right epididymal cyst ultrasound elsewhere 1.7 cm on 04/16/2023 3. Concern for microscopic hematuria urine dip elsewhere 07/14/2023 Ruled out by microscopic urinalysis 09/04/2023 4. Significant keloid formation 5. By history hypospadias repair at [facility] as an infant 6. Urolithiasis; punctate nonobstructing right upper pole renal stone 10/29/2023 CT; Concern for possible nonobstructing right renal stones ultrasound 09/08/[address] October 2023 Right kidney stone Relevant Orders X-ray abdomen ap 1 view Other microscopic hematuria Left varicocele - Primary Left testicular pain Epididymal cyst Follow-up: Patient returns noting stable intermittent left orchalgia. Admits he does get GERD symptoms at times. I provided independent interpretation of films and reports of CT demonstrating I agree punctate nonobstructing right renal solitary stone, as well as prominent rectal stool and small hiatal hernia. I advised the patient to pursue the non urologic CT findings with primary care. CT report provided to the patient. He does declined offer of semen analysis at this time. No confirmed family history of stones. I advised 2.75 L daily urinary output, low-sodium diet, generous citrate consumption especially lemon related products, and modest animal protein intake for stone prevention. Return 2 months with baseline KUB. Thank you very much. I appreciate being asked to help with this patient's care.. BERTHA KHALIL JR, MD This note was created with the assistance of a speech recognition program. While intending to generate a timely document that accurately reflects the content of the visit, no guarantee can be provided that every grammatical or spelling mistake has been or will be identified or corrected. Thank you for your understanding. documented in this encounter [facility] 10-09-2023 History of Presen t illness Narrative Images from the original note were not included. [address] [place] [phone] Patient: Abhi Matos Date of : 2005 Encounter Date: 10/09/2023 History of Present Illness: Chief Complaint: left orchalgia. See below Urinalysis today: No results for input(s): EXTPOCURCO, EXTPOCURCH, EXTPOCAPP, EXTPOCURBS, EXTPOCURBIL, EXTPOCUKET, EXTPOCUSPG, EXTPOCUHGB, EXTPOCUPRO, EXTPOCUURO, EXTPOCULEU, EXTPOCUNIT, EXTPOCUWBC, EXTPOCUBLD, EXTPOCURBC, EXTPOCUCRY, EXTPOCUBAC, EXTPOCUTREP, EXTPOCUPH, EXTPOCULEE in the last 72 hours. Last BUN and creatinine: No results found for: BUN No results found for: CREATININE Last PSA: No results found for: PSA No results found for: PROSTATICSP Past Medical, Family, and Social History Update: The following portions of the patient's history were reviewed and updated as appropriate: allergies, current medications, past family history, past medical history, past social history, past surgical history and problem list. Past Medical History: Diagnosis Date Keloid History reviewed. No pertinent surgical history. History reviewed. No pertinent family history. No current outpatient medications on file. No current facility-administered medications for this visit. (All medications reviewed and updated by provider since last office visit or hospitalization) Allergies: Patient has no known allergies. Tobacco History: Social History Tobacco Use Smoking Status Never Smokeless Tobacco Never (If patient a smoker, smoking cessation counseling offered) Social History: Social History Substance and Sexual Activity Alcohol Use Never Review of Systems: General: Negative for chills and fever. Cardiovascular: Negative for chest pain and shortness of breath. Gastrointestinal: Negative for constipation, diarrhea, nausea, and vomitting. -per HPI Physical Exam: BP 110/61 Pulse 61 Ht 170.2 cm (5' 7) Wt 57.2 kg (126 lb) BMI 19.73 kg/m alert, pleasant, without signs of acute illness, and in no distress. Respirations unlabored . Skin dry on examination now. Assessment and Plan: Abhi was seen today for follow-up. Diagnoses and all orders for this visit: Left testicular pain - CT abdomen and pelvis without contrast; Future Urologic disorders Other microscopic hematuria Epididymal cyst Left varicocele Right kidney stone - CT abdomen and pelvis without contrast; Future Problem List Unprioritized Urologic disorders Overview 1. Single without paternity with Left orchalgia, progressive onset estimated February 2023 with left varicocele ultrasound elsewhere 04/16/2023, apparent grade 2-3 exam 09/04/2023, not apparent ultrasound 09/08/2023; grandfather Matthew 2. Right epididymal cyst ultrasound elsewhere 1.7 cm on 04/16/2023 3. Concern for microscopic hematuria urine dip elsewhere 07/14/2023 Ruled out by microscopic urinalysis 09/04/2023 4. Significant keloid formation 5. By history hypospadias repair at [facility] as an 6. Concern for possible nonobstructing right renal stones ultrasound 09/08/2023 Right kidney stone Relevant Orders CT abdomen and pelvis without contrast Other microscopic hematuria Left varicocele Left testicular pain - Primary Relevant Orders CT abdomen and pelvis without contrast Epididymal cyst Follow-up: Patient returns with improvement in the frequency and intensity of his left-sided orchalgia. No other complaints. Overall has been doing well. I reviewed microscopic urinalysis in fact is negative for microscopic hematuria with less than 1 unless than 1 white cell per high-powered field. Therefore, he does not have clinically significant microscopic hematuria. I provided independent interpretation of films and reports of Retroperitoneal ultrasound, demonstrating I agree hypoechogenicity in the right kidney concerning for possible nonobstructing kidney stone or stones. I provided independent interpretation of films and reports of Scrotal ultrasound, and I discussed the findings also with the reading radiologist. He has right epididymal cyst as before, but no varicocele was seen at this time interestingly. Return 1 month with stone protocol abdominal pelvic CT to further evaluate for possible right kidney stone. Thank you very much. I appreciate being asked to help with this patient's care... BERTHA KHALIL JR, MD This note was created with the assistance of a speech recognition program. While intending to generate a timely document that accurately reflects the content of the visit, no guarantee can be provided that every grammatical or spelling mistake has been or will be identified or corrected. Thank you for your understanding. documented in this encounter [facility] [employer] 09-04-2023 History of Presen t illness Narrative Images from the original note were not included. [address] [place] [address] [address] [facility] [address] [facility] [id number] Patient: Abhi Matos Date of : 2005 Encounter Date: 09/04/2023 History of Present Illness: Chief Complaint: Left scrotal pain. The patient is a 18 y.o. male, a new patient, and is here for chief complaint left scrotal pain. Presents with his grandfather. Patient notes he has had the discomfort for awhile, which does radiate up into his abdomen, but it has gotten a lot worse the last 6 months. It has not constant but rather intermittent. It was a size he notes of a grape, now smaller more the size of an almond. 0 voiding complaints. Remote hypospadias repair elsewhere. No personal or family history of bleeding disorder. No history of stones, gross hematuria, or UTIs. He notes he gets difficulty with walking and shooting pain going up to his stomach with this. Does have keloids. Urinalysis today: No results for input(s): EXTPOCURCO, EXTPOCURCH, EXTPOCAPP, EXTPOCURBS, EXTPOCURBIL, EXTPOCUKET, EXTPOCUSPG, EXTPOCUHGB, EXTPOCUPRO, EXTPOCUURO, EXTPOCULEU, EXTPOCUNIT, EXTPOCUWBC, EXTPOCUBLD, EXTPOCURBC, EXTPOCUCRY, EXTPOCUBAC, EXTPOCUTREP, EXTPOCUPH, EXTPOCULEE in the last 72 hours. Last BUN and creatinine: No results found for: BUN No results found for: CREATININE Last PSA: No results found for: PSA No results found for: PROSTATICSP Past Medical, Family, and Social History Update: The following portions of the patient's history were reviewed and updated as appropriate: allergies, current medications, past family history, past medical history, past social history, past surgical history and problem list. Past Medical History: Diagnosis Date Keloid No past surgical history on file. History reviewed. No pertinent family history. No current outpatient medications on file. No current facility-administered medications for this visit. (All medications reviewed and updated by provider since last office visit or hospitalization) Allergies: Patient has no known allergies. Tobacco History: Social History Tobacco Use Smoking Status Never Smokeless Tobacco Never (If patient a smoker, smoking cessation counseling offered) Social History: Social History Substance and Sexual Activity Alcohol Use Never Review of Systems: Constitutional: Normal activity and energy. Patient denies change in appetite, weight loss or gain, malaise (depression), chills, fever, or diaphoresis (sweating). Eyes: Patient denies vision changes or diplopia (double vision). Ears, Nose, Nose and Throat: Patient denies tinnitus (ringing in ears), hearing loss, epistaxis (nose bleed), hoarseness, and dysphagia (hard to swallow). Respiratory: Patient denies dyspnea (shortness of breath), cough, hemotypsis (blood in sputum), and wheezing. Cardiovascular: Patient denies chest pain, palpitations, and shortness of breath. Gastrointestinal: Pt. States The upper part of his stomach is in pain. Hard to sit when the pain starts for long periods of time. Musculoskeletal: Patient denies joint pain/stiffness, weakness, swelling, and backache. Neurologic: Patient denies weakness, dizziness, loss of consciousness, transient ischemic symptoms, and seizures. Integument: Patient denies rashes and non-healing lesions. Psychiatric: Patient denies increased nervousness, mood changes, or depression. Endocrine: Patient denies thyroid trouble, heat or cold intolerance, diabetes, excessive thirst, hunger, and excessive urination. Blood Disorders: Patient denies anemia, easy bruising, and easy bleeding. Physical Exam: BP 116/63 Pulse 74 Ht 170.2 cm (5' 7) Wt 57.2 kg (126 lb) BMI 19.73 kg/m Alert, pleasant, without signs of acute illness, and in no distress. Respirations unlabored . Skin dry on examination now. No flank or abdominal masses or tenderness. Normal gait. Normal scrotum. Penis by history status post hypospadias repair appears circumcised nicely with nice open meatus on the glans and no evidence of fistula. Testicles descended bilaterally without mass or tenderness. No palpable inguinal hernia. Small right epididymal head cyst. Grade 2-3 left varicocele. Left forearm keloid Assessment and Plan: Abhi was seen today for varicocele. Diagnoses and all orders for this visit: Urologic disorders Left testicular pain Epididymal cyst Other microscopic hematuria - Ultrasound retroperitoneal complete; Future - Ultrasound scrotum for TORSION with duplex; Future - Microscopic, urine; Future Problem List Unprioritized Urologic disorders - Primary Overview 1. Single without paternity with Left orchalgia, progressive onset estimated February 2023 with left varicocele ultrasound elsewhere 04/16/2023, apparent grade 2-3 exam 09/04/2023; grandfather Matthew 2. Right epididymal cyst ultrasound elsewhere 1.7 cm on 04/16/2023 3. Concern for microscopic hematuria urine dip elsewhere 07/14/2023 4. Significant keloid formation 5. By history hypospadias repair at [facility] as an infant Other microscopic hematuria Relevant Orders Ultrasound retroperitoneal complete Ultrasound scrotum for TORSION with duplex Microscopic, urine Left testicular pain Epididymal cyst Follow-up: I reviewed the followin. Discharge summary regarding apnea 2003 2. Urine dip positive trace blood 07/14/2023 3. Ultrasound report elsewhere 04/16/2023 1.7 cm right epididymal cyst and left varicocele normal testicles 4. Urology provider note 07/14/2023 regarding left-sided scrotal pain, epididymal cyst, and varicocele with planned referral because partner who does varicocele repair was going away on maternity leave Epididymal cysts, they are benign nature, and natural history and management options were described. We reviewed these are not malignant and are not associated with testis cancer. They may enlarge, and additional cysts may appear. Asymptomatic cysts may become asymptomatic, and these can be managed with excision, which procedure can result in obstruction of the ejaculatory tract on the involved side and potentially infertility. I reviewed 15% of adult men have a varicocele, and 80-85% of the time these do not cause fertility issue. I reviewed only extremely rarely is a varicocele operated for pain, and I actually have never done so in 29 years. We discussed possible extratesticular cause of scrotal pain from a renal issue. I discussed the criteria for documentation of microscopic hematuria, at least 3-5 red or 3-5 white cells per high-powered field microscopy in the absence of other obvious benign source of hematuria on a microscopic urinalysis specimen. We reviewed that to date this patient's evaluation as not demonstrated these findings. Grandfather mention there was some concern regarding possible infertility with a varicocele, and we did discuss we certainly could order a semen analysis to check, but the patient and grandfather today declined that. Return 1 month with confirmatory scrotal ultrasound, retroperitoneal ultrasound, and microscopic urinalysis. I reviewed there are substantial potential risks and complications with varicocele repair including but not limited to anesthetic risks, testis atrophy, hydrocele formation, persistent/recurrent varicocele, and persistent or increased pain among others. We reviewed our facility/group does not offer venous embolization, and that could be pursued if desired by the patient perhaps at [facility]. Thank you very much. I appreciate being asked to help with this patient's care. BERTHA KHALIL JR, MD This note was created with the assistance of a speech recognition program. While intending to generate a timely document that accurately reflects the content of the visit, no guarantee can be provided that every grammatical or spelling mistake has been or will be identified or corrected. Thank you for your understanding. documented in this encounter [facility] 11-24-2021 Evaluation note Encounter Date Diagnosis Assessment Notes October, Injury of left ankle, initial encounter (ICD-10 - S99.912A) October, Sprain of left ankle, unspecified ligament, initial encounter (ICD-10 - S93.402A) Rest, ice for 20 minutes every hour. Keep your ankle elevated. Walk on foot as tolerated. Follow up with pcp in 14 days if no improvement. Complete excercises as directed. I personally reviewed and interrpreuted all of the xray images. No appreciable fractures or bony abnormalities. I suspect the patient has developed a sprain in one of the ligaments of his ankle. I did consider septic arthtritis, however, given that there is no warmth on palpation, erythema at the knee joint, and that he is able to range the knee, septic arthritis is unlikely. Given that there is no joint laxity, complete tear of ligament is unlikely. Advised to Rice his ankle. Will place natalio wrap on the ankle. I advised him to follow up with his pcp in 7 days if pain does not improve. Pt understands and agrees with the plan. [employer] Other Evaluation noteNo assessment information available [facility] Work Phone: Evaluation note* Diagnosis Acute nonintractable headache, unspecified headache type- Primary Tension headache documented in this encounter [facility]* Diagnosis Headache disorder- Primary Headache documented in this encounter [facility]* Diagnosis Urologic disorders- Primary Unspecified disorder of urethra and urinary tract Left testicular pain Epididymal cyst Other specified disorder of male genital organs Other microscopic hematuria [facility] Diagnosis Left testicular pain- Primary Urologic disorders Unspecified disorder of urethra and urinary tract Other microscopic hematuria Epididymal cyst Other specified disorder of male genital organs Left varicocele Scrotal varices Right kidney stone [facility] Diagnosis Left varicocele- Primary Scrotal varices Left testicular pain Urologic disorders Unspecified disorder of urethra and urinary tract Right kidney stone Other microscopic hematuria Epididymal cyst Other specified disorder of male genital organs [facility] Diagnosis Neck pain- Primary Cervicalgia [facility] Diagnosis Chest pain, unspecified type- Primary Neck pain Cervicalgia documented in this encounter [facility] Work Phone: Evaluation note* Diagnosis 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 * Headache Discharge Instructions, Adult (Macanese) * Tension Headache Discharge Instructions (Macanese) documented in this [facility] Discharge [facility]* Attachments The following attachments cannot be sent through Care Everywhere. * Headache Discharge Instructions, Adult (Macanese) documented [facility] this [facility] Discharge [facility]* Attachments The following attachments cannot be sent through Care Everywhere. * Chest Pain, Adult ED (Macanese) * Cervical Muscle Strain Discharge Instructions (Mac[place]) [facility]: InstructionsNot on filedocumented in this encounter [facility] filedocumented in [facility] filedocumented in this [facility] for [facility] (narrative)* Consultation (Routine) - Pending Review Specialty Diagnoses / Procedures Referred By Ann rodrigues Referred To Contact Family Medicine Diagnoses Acute nonintractable headache, unspecified headache type Tension headache Procedures [place] OFFICE/OUTPATIENT NEW HIGH M[facility] 60 MINUTES Jose G Orellana MD [address] [place] [address] [facility] [address] [place] [address] Referral ID Status Reason Start Date Expiration Date Visits Requested Visits Authorized [id number] Pending Review Specialty Services Required 03/24/2024 03/24/2025 1 1 [facility] Consultation (Urgent) - Pending Review Specialty Diagnoses / Procedures Referred By Ann t Referred To Contact Neurology Diagnoses Headache disorder Procedures [place] OFFICE/OUTPATIENT [facility] 60 MINUTES Stephania Gore MD [address] [place] [address] [facility] [address] [facility] [address] [place] [address] Referral ID Status Reason Start Date Expiration Date Visits Requested Visits Authorized [id number] Pending Review Specialty Services Required 03/28/2024 03/28/2025 1 1 * Consultation (Urgent) - Pending Review Specialty Diagnoses / Procedures Referred By Ann rodrigues Referred To Contact Family Medicine Diagnoses Headache disorder Procedures [place] OFFICE/OUTPATIENT [facility] 60 MINUTES Stephania Gore MD [address] [place] [address] [facility] [address] [facility] [place] [address] [place] [address] Referral ID Status Reason Start Date Expiration Date Visits Requested Visits Authorized [id number] Pending Review Specialty Services Required 03/28/2024 03/28/2025 1 1 [facility]arrative)No reason for referral [facility]: Summary Purpose Family History No Family History Records FoundNo Family History Records FoundNo Family History Records FoundNo Family History Records FoundNo Family History Records FoundNo Family History Records FoundNo Family History Records FoundNo Family History Records FoundNo Family History Records FoundNo Family History Records FoundNo Family History Records FoundNo Family History Records Found Advance Directives No Advanced Directives Records FoundNo Advanced Directives Records FoundNo Advanced Directives Records FoundNo Advanced Directives Records FoundNo Advanced Directives Records FoundNo Advanced Directives Records FoundNo Advanced Directives Records FoundNo Advanced Directives Records FoundNo Advanced Directives Records FoundNo Advanced Directives Records FoundNo Advanced Directives Records FoundNo Advanced Directives Records Found Chief Complaint and Reason for Visit Chief Complaint Nondisplaced Fx Dist al Phalanx Rt [facility] S20.219 A Xray Chest Pain, Chest Pain Etiology Unknown, [facility] Covid Covid Left Wrist Pain Xray Holter Monitor Echo Covid Chest Pain Nuc Med/ Cardio CHEMICAL BURN LT ARM/BWC RECHECK CHEMICAL BURN N50.89 Chief Complaint Admit Date R00.2 January 10, 2025 8:56 am Chief Complaint Admit Date R00.2 January 10, 2025 8:56 am Q26.1 ECHO January 18, 2025 1:05 pm Reason for Referral Specialty Diagnoses / Procedures Referred By Ann rodrigues Referred To Contact Radiology Diagnoses Left testicular pain Right kidney stone Procedures CT abdomen and pelvis without contrast Bertha Khalil Jr., MD [address] [place] [address] Referral ID Status Reason Start Date Expiration Date V isits Requested Visits Authorized [id number] Pending Review 10/09/2023 10/08/2024 1 1 Additional Source Comments REASON FOR VISIT (unrecogniz ed section and content) Reason Comments Headache X3 days Reason Comments Headache Pt reports headache since last Thursday. Came to ED on and received a ct scan/headache cocktail and left ED with no relief of headache. Pt reports he took motrin last night for CARPENTER without relief but has not kept up on pain medications. Pt denies HX of migraines, took covid test at home that was negative. Reason Comments Varicocele Reason Comments Follow-up Reason Comments Follow-up 1m w / ct prior Reason Comments Neck Pain No injury Reason Comments Neck Pain Neck pain s/p injury Thursday. Removed door from jamb and it fell onto his head/neck. Was seen Thursday at [facility] who prescribed Zanaflex. Pt reports they did not image him. Pt reports driving to work today and wasn't able to move his neck so he pulled over and called 911. Reason Comments New Patient Visit Persistent left supe rior vena cava, palps, review echo Specialty Diagnoses / Procedures Referred By Contkhalif t Referred To Contact Diagnoses Palpitations Tachycardia, unspecified Procedures ECG 12 Lead Justice Bass MD [address] [facility] [address], [facility] [address] [place] [address] Phone: tel: fax: Referral ID Status Reason Start Date Expiration Date V isits Requested Visits Authorized [id number] Authorized 02/08/2025 02/08/2026 1 1 (unrecognized sect ion and content) No Status Records FoundNo Status Records FoundNo Status Records FoundNo Status Records FoundNo Status Records FoundNo Status Records FoundNo Status Records FoundNo Status Records FoundNo Status Records FoundNo Status Records FoundNo Status Records FoundNo Status Records Found INFORMATION SOURCE (unrecogn ized section and content) DATE CREATED AUTHOR 04/24/2022 [facility] DATE CREATED AUTHOR AUTHOR'S ORGANIZ ATION 07/24/2022 [facility] DATE CREATED AUTHOR AUTHOR'S ORGANIZ ATION 07/04/2023 [facility] DATE CREATED AUTHOR AUTHOR'S ORGANIZ ATION 09/06/2023 [facility] DATE CREATED AUTHOR AUTHOR'S ORGANIZ ATION 10/30/2023 [facility] DATE CREATED AUTHOR AUTHOR'S ORGANIZ ATION 11/22/2023 [facility] DATE CREATED AUTHOR AUTHOR'S ORGANIZ ATION 01/05/2025 [facility] DATE CREATED AUTHOR AUTHOR'S ORGANIZ ATION 01/07/2025 [facility] DATE CREATED AUTHOR AUTHOR'S ORGANIZ ATION 01/11/2025 [facility] DATE CREATED AUTHOR AUTHOR'S ORGANIZ ATION 01/18/2025 [facility] DATE CREATED AUTHOR AUTHOR'S ORGANIZ ATION 01/27/2025 [facility] [place] DATE CREATED AUTHOR AUTHOR'S ORGANIZ ATION 03/31/2025 [facility] Ambulatory Goals (unrecognized section and content) Goals may be documented in a n alternate section Scheduled Active and Recently Administ ered Medications (unrecognized section and content) Medication Order 03/22/2024 03/23/2024 03/24/2024 diphenhydrAMINE (BENADryl) injection 25 mg (COMPLETED) 25 mg, IntraVENous, Once, On Nuvia 03/24/24 at 1440, For 1 dose 1457 (Given - Provid er: Kalyan Victoria RN) ketorolac (Toradol) injection 15 mg (COMPLETED) 15 mg, IntraVENous, Once, On Nuvia 03/24/24 at 1600, For 1 dose 1606 (Given - Provid er: Kalyan Victoria RN) metoclopramide (Reglan) injection 10 mg (COMPLETED) 10 mg, IntraVENous, Once, On Nuvia 03/24/24 at 1440, For 1 dose 1457 (Given - Provid er: Kalyan Victoria RN) ondansetron (Zofran) injection 4 mg (COMPLETED) 4 mg, IntraVENous, Once, On Nuvia 03/24/24 at 1440, For 1 dose 1457 (Given - Provid er: Kalyan Victoria RN) sodium chloride 0.9 % bolus 1,000 mL (COMPLETED) 1,000 mL, IntraVENous, at 1,000 mL/hr, Administer over 1 Hours, Once, On Nuvia 03/24/24 at 1440, For 1 dose 1457 (New Bag - Prov ider: Kalyan Victoria RN)1557 (Stopped - Provider: Kalyan Victoria RN) Scheduled Medication Order 03/26/2024 03/27/2024 03/28/2024 morphine injection 4 mg (COMPLETED) 4 mg, SubCUTAneous, Once, On Thu03/28/24 at 1855, For 1 dose, If oral and IV narcotics ordered, use oral first and only use IV if oral is ineffective or cannot take oral. Do Not give oral and IV within 1 hour of each other unless specifically ordered. 1857 (Given - Provid er: Soledad Eckert RN) Scheduled Medication Order 12/31/2024 01/01/2025 01/02/2025 traMADol (Ultram) tablet 50 mg (COMPLETED) 50 mg, Oral, Once, On Thu01/02/25 at 0030, For 1 dose 0030 (Given - Provid er: Amina Orosco RN) Scheduled Medication Order 01/01/2025 01/02/2025 01/03/2025 morphine injection 4 mg (COMPLETED) 4 mg, intravenous, Once, On Thu01/03/25 at 0735, For 1 dose 0749 (Given - Provid er: Tamika Landrum, MARY) ondansetron (Zofran) injection 4 mg (COMPLETED) 4 mg, intravenous, Once, On Thu01/03/25 at 0735, For 1 dose, When administering via IV Push, administer over 3-5 minutes. 0749 (Given - Provid er: Tamika Landrum RN) Care Teams (unrecognized sec tion and content) Rn Charge Relationship Specialty Start Date End Date Iliana Yu [address] [place] [address] PCP - General 03/24/24 Rn Charge Relationship Specialty Start Date End Date Iliana Yu [address] [place] [address] PCP - General 03/24/24 Rn Charge Relationship Specialty Start Date End Date Iliana Yu [address] [place] [address] PCP - General 03/24/24 Rn Charge Relationship Specialty Start Date End Date Iliana Yu MD [address] [place] [address] PCP - General Family Medicine 09/07/23 Rn Charge Relationship Specialty Start Date End Date Iliana Yu MD [address] [place] [address] PCP - General Family Medicine 09/07/23 Rn Charge Relationship Specialty Start Date End Date Iliana Yu MD [address] [place] [address] PCP - General Family Medicine 09/07/23 Rn Charge Relationship Specialty Start Date End Date Iliana Yu MD [address] [place] [address] PCP - General Family Medicine 09/07/23 Rn Charge Relationship Specialty Start Date End Date Iliana Yu [address] [place] [phone] PCP - General 03/24/24 01/01/25 Rn Charge Relationship Specialty Start Date End Date Generic Provider, No [place] [address] PCP - General Tearoom Host/Hostess 01/03/25 Rn Charge Relationship Specialty [place] [address] [place] [id number] PCP - General Family Medicine 01/19/25 FOR RECORDS PERTAINING TO PATIENTS WHO ARE OR HAVE BEEN ENROLLED IN A CHEMICAL DEPENDENCY/SUBSTANCEABUSE PROGRAM, SOME INFORMATION MAY BE OMITTED. This clinical summary was aggregated from multiple sources. Caution should be exercised in using it in the provision of clinical care. This summary normalizes information from multiple sources, and as a consequence, information in this document may materially change the coding, format and clinical context of patient data. In addition, data may be omitted in some cases. CLINICAL DECISIONS SHOULD BE BASED ON THE PRIMARY CLINICAL RECORDS. [employer] [facility]. provides no warranty or guarantee of the accuracy or completeness of information in this document.
== END 2025-06-24 11:28 | disposition home or self-care (01) ==
LOC: ED 11:22
PROVIDERS: Emergency Provider Emergency Medicine; PCP Family Medicine; Visit Provider Emergency Medicine
DX: S63.92XA Sprain of unspecified part of left wrist and hand, initial encounter (principal); Y93.62 Activity, american flag or touch football; W03.XXXA Other fall on same level due to collision with another person, initial encounter; Y92.89 Other specified places as the place of occurrence of the external cause
CPT/HCPCS: 73110; 99283